=== PATIENT | male | born 1975 | race Two or more races ===

== ENCOUNTER 2024-09-08 15:18 | Outpatient (REF) | payer BC, SELFPAY ==
[2024-09-08 17:08] LABS: Erythrocyte Sedimentation Rate 13 MM/HR (0-15)
== END 2024-09-08 15:19 | disposition home or self-care (01) ==
LOC: HO.LAB 15:18
PROVIDERS: PCP Internal Medicine; Visit Provider Registered Nurse
DX: G44.209 Tension-type headache, unspecified, not intractable (principal)
CPT/HCPCS: 36415; 85652; 86140

== ENCOUNTER 2024-12-28 14:25 | Outpatient (AMB) | payer BC, SELFPAY ==
--- OUTSIDE RECORDS SUMMARY | 2024-12-28 15:00 | XMS_ITS | Encounter Summary ---
Author Organization [employer] Address [address] [place] [address] Care Team Providers Care Annealing Torch Operator Name Role Phone Sunil Renae MD Primary Care Provider [phone] Reason for Visit * Reason Onset Date Comments Results 12/15/2024 Encounter Details Date Type Department Care Team ([facility] st Contact Info) Description 12/15/2024 Telephone Adult Medicine [address] [phone] Giselle Valadez MA Results Social History Tobacco Use Types Packs/Day Years Used Date Smoking Tobacco: Former Cigarettes Q uit: 12/21/2023 Smokeless Tobacco: Never Alcohol Use Standard Drinks/Week Comments Yes 0 (1 standard drink = 0.6 oz pur e alcohol) Sex and Gender Information Value Date Recorded Sex Assigned at Male 08/24/2024 7:19 PM EST Legal Sex Male 7:05 AM EST Gender Identity Male 05/14/2024 8:08 AM EST Sexual Orientation Straight 08/24/2024 7: 19 PM EST documented as of this encounter Functional Status * Are you deaf or do you have serious difficulty hearing? Answer Date of Assessment Author No 09/13/2024 3:22 PM EDT Gomez Murcia RN * Do you have serious difficulty walking or climbing stairs? Answer Date of Assessment Author No 09/13/2024 3:22 PM EDT Gomez Murcia RN * Do you have serious difficulty dressing or bathing? Answer Date of Assessment Author No 09/13/2024 3:22 PM EDT Gomez Murcia RN * Because of a physical, mental, or emotional condition, do you have serious difficulty doing errandsalone such as visiting the doctor? Answer Date of Assessment Author No 09/13/2024 3:22 PM EDT Gomez Murcia RN documented as of this encounter Mental Status * Because of a physical, mental, or emotional condition, do you have serious difficulty concentrating, remembering, or making decisions? (5 years old or older) Answer Entry Date Author No 09/13/2024 3:22 PM EDT Gomez Murcia RN documented in this encounter Ordered Prescriptions Prescription Sig Dispense Quantity Refills Last Filled Start Date End Date atorvastatin (LIPITOR) 10 mg tablet Take 1 tablet (10 mg total) by mouth 1 (one) time each day. 90 each 1 12/19/2024 12/19/2025 documented in this encounter Progress Notes * Larissa Salmeron MA - 12/20/2024 12:25 PM EDT Contacted patient to inform of results. Pt stated he is going to the pharmacy and picking up his medication. * Sunil Renae MD - 12/19/2024 6:05 PM EDT Pt will need a canadian nurse to call him, so he had lipids drawn 12/13/2024 Ldl very high at 174 last ldl 07/2023 144 Please let him now his risk for stroke and or heart attack is estimated to be 10.4% in the next 10 year cholesterol medication is recommend for risk > 7.5% that being said please inform the patient that a cholesterol medication, atorvastatin 10mg, has been sent to his pharmacy * Anneliese Kennedy MA - 12/19/2024 3:55 PM EDT Pt calling for the 2nd time asking for his lab results from 12/13/24 Paulina is out of the office. Can you please advise. * Cristine Fernandez - 12/19/2024 3:34 PM EDT Patient calling back and looking to speak with someone regarding lab results. * Mili Martínez - 12/16/2024 9:09 AM EDT Patient is calling in. Used interpreting service ([phone] [id number]). Patient would like a call back todiscuss his results. Please advise. * Giselle Valadez MA - 12/15/2024 10:36 AM EDT Inform patient: ANY URGENT OR ABNORMAL RESULTS WIILL RESULT IN A CALL BACK TO THE PATIENT GABRIELA. Type of test: :BLOODWORK Date test was performed: 12/13/24 Where was the test performed: [facility] Who ordered this test?: ELISHA LYMAN PA-C Is the doctor here today?: yes Can the message wait until the doctor returns?: no IF PATIENT'S PCP IS NOT IN INSTRUCT PATIENT THAT THEY WILL RECEIVE A CALL BACK WHEN THE PCP IS IN THE OFFICE NEXT. documented in this encounter Plan of Treatment Upcoming Encounters Date Type Department Care Team (Late st Contact Info) Description 12/28/2024 4:00 PM EDT Office Visit Adult Medicine [facility] [address] [place] [address] Kenzie Chou NP [address] [place] [address] Primary hypertension (Primary Dx); Hypercholesteremia; Urinary urgency 01/05/2025 9:10 AM EDT Office Visit Gastroenterology - [place] [address] [place] [id number] Emma Karimi PA [address] [address] 01/17/2025 8:15 AM EDT Appointment [facility] [address] [place] [phone] 04/03/2025 5:00 PM EDT Office Visit Adult Medicine [facility] [address] [place] [phone] Kenzie Chou NP [address] [place] [address] documented as of this encounter Visit Diagnoses Not on filedocumented in this encounter Care Teams Annealing Torch Operator Relationship Specialty Start Date End Date Sunil Renae MD [address] [place] [id number] PCP - General Internal Medicine 04/08/13 documented as of this encounter
--- OUTSIDE RECORDS SUMMARY | 2024-12-28 15:00 | XMS_ITS | Clinical Summary ---
Author Organization [facility] Address [address] [place] [address] Care Team Providers Care Finish Repair Worker Name Role Phone Unavailable Primary Care Provider Unavailabl e Source Comments PLEASE NOTE, if this patient is a minor, it may be UNLAWFUL to discuss sensitive information that is contained in these records (such as FAMILY PLANNING, MENTAL HEALTH or SUBSTANCE ABUSE) with the minor patient's parent or other person without the patient's specific authorization.[facility] Immunizations Immunization Administration Dates Next Due PFIZER COVID VACCINE, PURPLE CAP, 12+ 06/19/2021 Social History Tobacco Use Types Packs/Day Years Used Date Smoking Tobacco: Never Assessed Sex and Gender Information Value Date Recorded Sex Assigned at Not on file Legal Sex Male 10:48 AM PST Gender Identity Not on file Sexual Orientation Not on file Plan of Treatment Health Maintenance Due Date Last Done Comments Anxiety Screening 1977 Diabetes Screening 1977 Hepatitis C Screening 1977 Lipid Screening 1977 Tobacco Screening 1977 HIV Screening 1992 Hypertension Screening (#1) 1995 Imm-Hepatitis B (1 of 3 - 19+ 3-dose series) 6 CT Colonography 2022 Colonoscopy 2022 Colorectal Cancer Screening 2022 FIT/gFOBT 2022 Fecal DNA 2022 Flexible Sigmoidoscopy 2022 [id number] ( season) 2024 021 Alcohol and Drug Screen 06/22/2024 Depression Annual Screen 06/22/2024 Imm-DTaP/Tdap/Td (2 - Td or Tdap) 08/21/2024 015 Imm-Influenza (#1) 2025 Insurance [facility] DENTAL COVID19 [facility] UNINSURED TESTING AND TREATMENT FUND
--- NOTE | 2024-12-28 15:24 | MHC.OFFVIS ---
Intake Visit Reasons: 6 weeks Shrinking Machine Operator Required: Yes Shrinking Machine Operator Name: Sammie #[id number] Allergies No Known Allergies Allergy (Verified 12/28/24 15:35) Medication List - Last Reconciled 12/28/24 by Lanny Shannon CNP atorvastatin 10 mg PO DAILY jhprotyial-hxbviosapbcbk-mjvf 50-325-40 mg tabs PO cetirizine 10 mg PO DAILY 30 days famotidine 20 mg PO BID nifedipine ER 30 mg PO DAILY trazodone 50 mg PO BEDTIME 30 days venlafaxine 75 mg PO DAILY HPI Comments Details: 49-year-old Mohawk speaking man with 15-year history of hypertension controlled with medications and headaches that have been ongoing for several years. He gets 2 or 3 days of pain in the scalp, sometimes sharp, stabbing pains in the occipital area, on either side, and sometimes frontal. The pains in the back of the head usually last a couple of minutes. Sometimes a frontal headache lasts an hour. No pattern has been specified and no triggers known. There are no associated symptoms of nausea, vomiting, photophobia, sonophobia, or dizziness. He has trouble sleeping at night. He was doing okay. Headaches were better with increased dose of venlafaxine and cetirizine. He was concerned with difficulty sleeping. He was having trouble initiating and maintaining sleep. He was waking up about 4-5x/night and it could take him sometimes up to 1-2 hours to fall back to sleep. [facility] Medical History (Updated 12/28/24 @ 15:41 by Lanny Shannon CNP) Sinusitis Migraine Hypertension Insomnia Tension headache Social History (Updated 12/28/24 @ 13:50 by Selena Gleason MA) Patient Tobacco Use Status: Never used Tobacco Review of Systems Const Denies chills, Denies daytime sleepiness, Reports difficulty sleeping, Denies fatigue, Denies fever(s), Denies frequent falls, Reports headache(s), Denies increased appetite, Denies poor appetite, Denies snoring, Denies weakness, Denies weight gain and Denies weight loss Eyes Denies loss of vision ENT Denies vertigo, Denies dizziness, Reports headache(s) and Denies neck pain Card Denies chest pain at rest, Denies chest pain with activity, Denies syncope, Denies leg edema, Denies palpitations, Denies dyspnea and Denies dyspnea on exertion Resp Denies cough, Denies dyspnea, Denies dyspnea on exertion and Denies snoring GI Denies abdominal pain, Denies constipation, Denies heartburn, Denies diarrhea and Denies nausea Denies urinary frequency, Denies urinary incontinence and Denies urinary urgency Musc Denies abnormal gait, Denies back pain, Denies myalgias, Denies arthralgias, Denies neck pain, Denies numbness, Denies stiffness and Denies tingling Neuro Denies abnormal gait, Denies vertigo, Denies dizziness, Denies syncope, Denies frequent falls, Reports headache(s), Denies lack of coordination, Denies loss of vision, Denies memory loss, Denies numbness, Denies Other visual disturbances, Denies restless legs, Denies seizure-like activity, Denies tingling, Denies paresthesias, Denies tremor(s) and Denies weakness Psych Denies anxiety, Denies depression, Denies memory loss, Denies visual hallucinations and Denies hallucinations Endo Denies fatigue and Denies palpitations Physical Exam Const Other: General Appearance:? normal, in no acute distress. Heart:? S1, S2 normal, no murmurs. Lungs:? clear anteriorly and posteriorly. Musculoskeletal:? normal. Extremities:? no edema. Psych:? alert, oriented, cognitive function intact, cooperative with exam. Neuro Other: Abnormal Neurological Findings:?none.? Mental Status: alert and oriented X 3. Normal attention, orientation, memory, and affect. Cranial Nerves: Pupils are equal, round, and reactive to light. External ocular muscles are intact. Visual vital are full, no ptosis. Face is symmetrical, no facial weakness or droop. Facial sensations are normal. Tongue protrudes in midline. Palate elevates symmetrically. Shoulder shrugging is normal Motor Examination: Normal muscle tone, bulk and strength. No atrophy or fasciculations. No drift of the extended upper extremities. DTR 2+. Plantars are flexor. Straight Leg Raisin degrees. Sensory Exam: Normal light touch, temperature, pinprick, vibration, and joint-position sensations. Rhomberg sign is absent. Coordination: No ataxia. No titubation. Fhqxfc-di-qgcv, bcen-avfd-gnxq test, and rapid alternating movements were normal. Gait Exam: Within normal limits. Cerebellar Signs: Jkvvti-ku-arsj and beft-pi-ybyh is normal. No dysdiadochokinesia. Extrapyramidal System: No tremor, rigidity with normal facial expressions. No bradykinesia. No bradyphrenia. Normal arm swing and posture. No propulsion or retropulsion. Speech: Normal. No dysphasia or dysarthria. Assessment & Plan Assessment & Plan (1) Tension headache: Code(s): G44.209 - Tension-type headache, unspecified, not intractable Category: Medical Plan: Continue venlafaxine 75mg 1 tablet daily (2) Insomnia: Code(s): G47.00 - Insomnia, unspecified Category: Medical Qualifiers: Insomnia type: unspecified Qualified Code(s): G47.00 - Insomnia, unspecified Plan: Start trazodone 50mg 1 tablet at bedtime, use/side effects reviewed. (3) Sinusitis: Code(s): J32.9 - Chronic sinusitis, unspecified Category: Medical Qualifiers: Chronicity: unspecified Sinusitis location: unspecified location Qualified Code(s): J32.9 - Chronic sinusitis, unspecified Plan: Continue cetirizine 10mg 1 tablet daily. Plan Meds tried: amitriptyline (did not help and caused dry mouth), nortriptyline (did not help), topiramate (did not help), prednisone (did not finish taper), verapamil (did not like how he felt with med), cyclobenzaprine, venlafaxine Medications: New trazodone 50 mg PO BEDTIME 30 tabs 1RF 30 days cetirizine 10 mg PO DAILY 30 tabs 5RF 30 days Coding Level of Care Code Est Pt Level 4 (45618) Diagnoses Tension headache G44.209 Insomnia, unspecified type G47.00 Insomnia type: unspecified Sinusitis, unspecified chronicity, unspecified location J32.9 Chronicity: unspecified Sinusitis location: unspecified location
== END 2024-12-28 15:47 | disposition home or self-care (01) ==
LOC: HO.HSM 14:25
PROVIDERS: PCP Internal Medicine; Referring Provider Internal Medicine; Visit Provider Registered Nurse
DX: G44.209 Tension-type headache, unspecified, not intractable (principal); G47.00 Insomnia, unspecified; J32.9 Chronic sinusitis, unspecified
CPT/HCPCS: 99214

== ENCOUNTER 2025-03-29 10:21 | Outpatient (AMB) | payer OTHER, SELFPAY ==
--- NOTE | 2025-03-29 10:35 | A.OFFVIS_ITS ---
Vital Signs 03/29/25 10:47 Height 5 ft 11 in Weight 295 lb BMI 41.1 BP 128/90 H Blood Pressure Location Rt brachial Position Sitting Respiration 16 Pulse 88 Pulse Source Pulse Oximeter Pulse Oximetry (%) 99 Oxygen Delivery Method Room Air Intake Visit Reasons: Migraine Telecom Billing Analyst Required: Yes Telecom Billing Analyst Services: Telecom Billing Analyst Present Telecom Billing Analyst Name: Duncan ID [id number] Information Interpreted: non-clinical & clinical Allergies venlafaxine Allergy (Severe, Verified 03/29/25 10:46) Low Blood Pressure aspirin Allergy (Unknown, Verified 03/29/25 10:46) Tachycardia Medication List - Last Reconciled 03/29/25 by Magui Rosales, YENY atorvastatin 10 mg PO DAILY cetirizine 10 mg PO DAILY 30 days nifedipine ER 30 mg PO DAILY omeprazole 40 mg PO DAILY trazodone 50 mg PO BEDTIME 90 days HPI Comments Details: Denton is a 49-year-old male patient with a past medical history of hypertension, constipation, headache, and insomnia. He was last seen by Lanny NERI in December of 2024 at which time he reported 2 or 3 days of sharp pain to his scalp in the occipital area and sometimes frontal area. Pain could last a couple of minutes and he denied any associated nausea, vomiting, photophobia, phonophobia, or dizziness. He did report difficulty sleeping at night. Headaches in the past have improved with increased dose of venlafaxine and cetirizine. He unfortunately had some dizziness and hypotension with increased dose of venlafaxine and stopped taking it. At last visit, he still continued to have difficulty initiating and maintaining sleep. He was started on trazodone 50 mg at bedtime and continued on cetirizine. He tells me today that since starting on the trazodone he feels that he has been sleeping better but still only estimates that he gets about 3-4 hours per night with frequent awakenings. He does wake himself snoring at times and awakes from sleep lightheaded. He believes that he had a sleep study completed about 2 years ago at [facility] [place]. He recalls that it was normal. He continues to have some dull pain to the frontal areas of his head that is intermittent and associated with some difficulty with concentration. He has the pain daily but it fluctuates throughout the day and can radiate to his neck. He denies light sensitivity, sensitivity to noise but at times can have some nausea and dizziness. At times he may also have a sensation of full body weakness and at times can experience blurred vision to both eyes. It is also noted in the in the past he has tried: Amitriptyline-no benefit and dry mouth Nortriptyline no benefit Topiramate-no benefit Verapamil-did not like the way it made him feel Cyclobenzaprine-no significant benefit Venlafaxine-has had some benefit with this [facility] Medical History (Updated 03/29/25 @ 11:17 by Magui Rosales CNP) Sinusitis Migraine Hypertension Insomnia Tension headache Social History (Updated 12/28/24 @ 13:50 by Selena Gleason MA) Patient Tobacco Use Status: Never used Tobacco Review of Systems Const All systems reviewed & are unremarkable except as noted in HPI and below Physical Exam Vital Signs: Last Vital Signs Pulse 88 03/29/25 10:47 Resp 16 03/29/25 10:47 BP 128/90 H 03/29/25 10:47 Pulse Ox 99 03/29/25 10:47 Oxygen Delivery Method Room Air 03/29/25 10:47 BMI result Body Mass Index 41.1 Const General: cooperative, healthy appearing, comfortable and no acute distress Nutritional Appearance: well nourished Orientation/consciousness: patient oriented x3 Limitations: no limitations HEENT Head: Yes normal to inspection and Yes normocephalic Eyes General: appearance normal, both eyes and all related structures Visual Collins: normal visual collins by confrontation Alignment and Position: alignment normal Periorbital: periorbital findings normal Eyelids: Yes eyelids normal Conjunctivae: conjunctivae normal Sclerae: sclerae normal Back/Spine/Pelvis Other: * Bilateral upper trapezius tightness and some mild SELENA tenderness. Neuro General: patient oriented x3 and deep tendon reflexes 2+ bilaterally Cranial nerves: Yes CN's II-XII intact bilaterally and Yes Facial sensation intact/muscles of mastication intact Cognition (Neuro): normal cognition Gait exam (Neuro): Normal gait present Motor exam (neuro): 5/5 motor strength present throughout and no tremor noted Sensory Exam: double simultaneous stimulation for sensation normal Romberg Test: Negative Pupils: Normal pupillary reactivity/response: bilateral Psych Appearance: grossly normal Mental Status: mental status grossly normal Speech and movement: Normal speech and movement present and Clear speech present Affect: normal affect Attitude: cooperative Thought process: Normal thought process present Thought content: Normal thought content present Insight: Good insight present (Psych) Judgement: Good judgement present (Psych) Assessment & Plan Assessment & Plan (1) Chronic daily headache: Code(s): R51.9 - Headache, unspecified Category: Medical (2) Chronic migraine without aura without status migrainosus, not intractable: Code(s): G43.709 - Chronic migraine without aura, not intractable, without status migrainosus Category: Medical (3) Chronic tension headache: Code(s): G44.229 - Chronic tension-type headache, not intractable Category: Medical Plan Denton is a 49-year-old male patient with a past medical history of hypertension, constipation, headache, and insomnia. He has chronic headache and insomnia. His insomnia slightly better on trazodone 50 mg nightly though still his sleep quality is relatively poor. He does report having a normal sleep study in the past though we could consider repeating his sleep study if his sleep quality does not improve. In regards to his headaches, he is having daily headaches to the frontal areas with some occipital pain and trapezius tightness. Overall, his headaches are consistent with tension-type however because he does have accompanying nausea, dizziness, and blurred vision, headaches do technically fit criteria for chronic migraine. He has exhausted numerous options for tension-type headache and therefore I think it would be reasonable to trial him on Emgality. We also discussed potentially considering occipital nerve blocks or trigger point injections moving forward if the Emgality does not improve his headaches. Emgality teaching performed during visit with irrigationist designer and reyo pen. -Could consider repeat sleep study -Contnue Trazodone for now -Emgality 240mgsc loading dose and 120mg sc maintenance dose -Consider ONB and trigger points for alternative tx options -Follow-up in 2 months Medications: New galcanezumab-gnlm (Emgality Pen) Loading dose 240 mg (2 mL) subcut ONCE 2 mL 0RF galcanezumab-gnlm (Emgality Pen) 120 mg subcut QMONTH 1 mL 4RF Changed From trazodone 50 mg PO BEDTIME 30 days 30 tabs 1RF To trazodone 50 mg PO BEDTIME 90 tabs 3RF 90 days Coding Level of Care Code Est Pt Level 4 (03310) Diagnoses Chronic daily headache R51.9 Chronic migraine without aura without status migrainosus, not intractable G43.709 Chronic tension headache G44.229
[2025-03-29 10:47] VITALS: BP 128/90; PULSE 88; RESP 16; O2SAT 99; BMI 41.1
== END 2025-03-29 11:10 | disposition home or self-care (01) ==
LOC: HO.HSM 10:22
PROVIDERS: PCP Internal Medicine; Visit Provider Nurse Practitioner
DX: R51.9 Headache, unspecified (principal); G43.709 Chronic migraine without aura, not intractable, without status migrainosus; G44.229 Chronic tension-type headache, not intractable
CPT/HCPCS: 99214

== ENCOUNTER → 2025-03-29 10:21 | Outpatient (BNVA) | payer OTHER, SELFPAY | PROVIDERS: PCP Internal Medicine; Visit Provider Nurse Practitioner | DX: G43.709 Chronic migraine without aura, not intractable, without status migrainosus (principal); G44.229 Chronic tension-type headache, not intractable | CPT/HCPCS: 99212 ==

== ENCOUNTER 2025-06-02 15:24 | Outpatient (AMB) | payer OTHER, SELFPAY ==
[2025-06-02 15:35] VITALS: BP 132/82; PULSE 81; RESP 16; O2SAT 99; BMI 41.6
--- NOTE | 2025-06-02 15:35 | MHC.OFFVIS ---
Vital Signs 06/02/25 15:35 Height 5 ft 11 in Weight 298 lb BMI 41.6 BP 132/82 Blood Pressure Location Rt brachial Position Sitting Respiration 16 Pulse 81 Pulse Oximetry (%) 99 Oxygen Delivery Method Room Air Intake Visit Reasons: 2m migraine Final Inspector Paper Required: Yes Final Inspector Paper Services: Final Inspector Paper Present Information Interpreted: non-clinical & clinical Allergies venlafaxine Allergy (Severe, Verified 06/02/25 15:37) Low Blood Pressure aspirin Allergy (Unknown, Verified 06/02/25 15:37) Tachycardia HPI Comments Details: Denton is a 50-year-old male patient with a past medical history of hypertension, constipation, headache, and insomnia. He has a history of chronic migraine that has improved somewhat since starting on trazodone given the improvement in his sleep quality though estimates that he still is experiencing daily headaches fluctuating in intensity throughout the day often to the frontal areas accompanied by nausea and dizziness. He also at times has a sensation of whole-body weakness and can experienced blurred vision in both eyes. Pain is often described as a dull aching pain. He has tried several agents for his migraines without benefit. At time of his last visit, I did order Emgality however this was denied by insurance for unclear reasons but perhaps due to lack of supportive documentation regarding his past medication trials. Today he tells me that his headaches have not changed since the time of our last visit but he does feel that the trazodone helps still to some degree with minimizing his migraine severity in improving his sleep quality. It is also noted in the in the past he has tried: Amitriptyline-no benefit and dry mouth Nortriptyline no benefit Topiramate-no benefit Verapamil-did not like the way it made him feel Cyclobenzaprine-no significant benefit Venlafaxine-has had some benefit with this (do not reccomend antihypertensives for migraine prevention as he is currently on nifedipine) [facility] Medical History (Updated 03/29/25 @ 11:17 by Magui Rosales CNP) Sinusitis Migraine Hypertension Insomnia Tension headache Social History (Updated 12/28/24 @ 13:50 by Selena Gleason MA) Patient Tobacco Use Status: Never used Tobacco Review of Systems Const All systems reviewed & are unremarkable except as noted in HPI and below Physical Exam Vital Signs: Last Vital Signs Pulse 81 06/02/25 15:35 Resp 16 06/02/25 15:35 BP 132/82 06/02/25 15:35 Pulse Ox 99 06/02/25 15:35 Oxygen Delivery Method Room Air 06/02/25 15:35 BMI result Body Mass Index 41.6 Const General: cooperative, healthy appearing, comfortable and no acute distress Nutritional Appearance: well nourished Orientation/consciousness: patient oriented x3 Limitations: no limitations HEENT Head: Yes normal to inspection and Yes normocephalic Eyes General: appearance normal, both eyes and all related structures Visual Vital: normal visual vital by confrontation Alignment and Position: alignment normal Periorbital: periorbital findings normal Eyelids: Yes eyelids normal Conjunctivae: conjunctivae normal Sclerae: sclerae normal Back/Spine/Pelvis Other: Bilateral upper trapezius tightness and some mild SELENA tenderness. Neuro General: patient oriented x3 and deep tendon reflexes 2+ bilaterally Cranial nerves: Yes CN's II-XII intact bilaterally and Yes Facial sensation intact/muscles of mastication intact Cognition (Neuro): normal cognition Gait exam (Neuro): Normal gait present Motor exam (neuro): 5/5 motor strength present throughout and no tremor noted Sensory Exam: double simultaneous stimulation for sensation normal Romberg Test: Negative Pupils: Normal pupillary reactivity/response: bilateral Psych Appearance: grossly normal Mental Status: mental status grossly normal Speech and movement: Normal speech and movement present and Clear speech present Affect: normal affect Attitude: cooperative Thought process: Normal thought process present Thought content: Normal thought content present Insight: Good insight present (Psych) Judgement: Good judgement present (Psych) Assessment & Plan Assessment & Plan (1) Chronic migraine without aura without status migrainosus, not intractable: Code(s): G43.709 - Chronic migraine without aura, not intractable, without status migrainosus Category: Medical Plan Denton is a 50-year-old male patient with a past medical history of hypertension, constipation, headache, and insomnia. He has a history of chronic migraine and has tried several agents for migraine control without much success. He is still having daily migraines fluctuating in intensity accompanied by nausea and dizziness. At time of last visit he was prescribed Emgality though this was denied by insurance for unclear reasons but perhaps due to lack of supporting documentation regarding past medication trials or reasons he can not take other first-line agents. I did clarify this as listed above in the HPI. Because he has had such a gap in time since our last visit without any new therapy, I did provide him with an Ajovy sample during today's visit due to availability of this medication. It is a suitable alternative to Emgality. I will discontinue the request for Emgality and pursue an approval for Ajovy prevented that we are able to give him a sample and start his therapy at time of visit today. -Ajovy 225 mg sample injection given today during his visit (lot number [id number], exp date ) -I we will order the Ajovy 225 mg monthly injections which will hopefully be approved to 2 clarification of the past medication trials and contraindications to certain first-line agents -Follow-up in 1 month Medications: New fremanezumab-vfrm (Ajovy) 225 mg (1.5 mL) subcut QMONTH 1.5 mL 5RF Discontinued galcanezumab-gnlm (Emgality Pen) Loading dose Discontinued Reason: Doctor's Order 240 mg (2 mL) subcut ONCE 2 mL 0RF galcanezumab-gnlm (Emgality Pen) Discontinued Reason: Doctor's Order 120 mg subcut QMONTH 1 mL 4RF Coding Level of Care Code Est Pt Level 4 (84095) Diagnoses Chronic migraine without aura without status migrainosus, not intractable G43.709
--- OUTSIDE RECORDS SUMMARY | 2025-06-02 20:16 | XMS_ITS ---
Author Name [facility] ([place], [place]) Organization Unknown Care Team Organization Name Specialty Phone Email Start Date End Da te [facility] 08/27/2022 02/08/2024 [facility] DIPAK [facility]BETT Primary [facility] 04/29/2022
--- OUTSIDE RECORDS SUMMARY | 2025-06-02 20:16 | XMS_ITS | Clinical Summary ---
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 4 Active linaCLOtide (Linzess) 290 mcg capsule Take 1 capsule (290 mcg total) by mouth 1 (one) time each day. 30 capsule 11 4 Active lactulose (CHRONULAC) solution Take 30 mL (20 g total) by mouth 2 (two) times a day. 900 mL 2 5 Active Additional Information Patient not taking.Reported on 05/11/2025 linaCLOtide (Linzess) 290 mcg capsule Take 1 capsule (290 mcg total) by mouth 1 (one) time each day. 90 capsule 3 5 Active methocarbamoL (ROBAXIN) 500 mg tablet Take 2 tablets (1,000 mg total) by mouth 2 (two) times a day if needed for muscle spasms for up to 10 days. 20 tablet 5 Active Additional Information Patient not taking.Reported on 05/11/2025 SUMAtriptan (IMITREX) 50 mg tablet Take 1 tablet (50 mg total) by mouth 1 (one) time if needed for migraine. May repeat dose once in 2 hours if no relief. Do not exceed 2 doses in 24 hours. 27 tablet 5 04/12/20 26 Active hydrOXYzine HCL (ATARAX) 10 mg tablet Take 1 tablet (10 mg total) by mouth every 8 (eight) hours if needed for anxiety. 60 tablet 5 Active NIFEdipine (ADALAT CC) 30 mg 24 hr tablet Take 1 tablet (30 mg total) by mouth 1 (one) time each day in the evening. 90 tablet 1 5 Active sertraline (ZOLOFT) 50 mg tablet Take 1 tablet (50 mg total) by mouth 1 (one) time each day. 30 each 2 5 08/07/19 26 Active traZODone (DESYREL) 50 mg tablet Take 1 tablet (50 mg total) by mouth at bedtime as needed for sleep. 60 each 5 07/08/19 26 Active omeprazole (PriLOSEC) [address] capsule Take 1 capsule (40 mg total) by mouth 2 (two) times a day before meals. Do not crush or chew. 180 each 3 5 05/11/20 26 Active ondansetron (ZOFRAN) 4 mg tablet Take 1 tablet (4 mg total) by mouth 3 (three) times a day. 20 tablet 5 06/10/20 25 Active atorvastatin (LIPITOR) 10 mg tablet Take 1 tablet (10 mg total) by mouth 1 (one) time each day. 90 each 1 5 05/29/20 26 Active atorvastatin (LIPITOR) 10 mg tablet Take 1 tablet (10 mg total) by mouth 1 (one) time each day. 90 each 1 5 05/25/20 25 Discontin ued(Reord er) omeprazole (PriLOSEC) [address] capsule Take 1 capsule (40 mg total) by mouth 2 (two) times a day before meals. Do not crush or chew. 60 each 3 5 05/11/20 25 Discontin ued(Reord er) sertraline (ZOLOFT) 50 mg tablet Take 1 tablet (50 mg total) by mouth 1 (one) time each day. Take 1/2 pill for the first 10 days, increase to 1 pill thereafter. 30 each 1 5 05/09/20 25 Discontin ued(Reord er) traZODone (DESYREL) 50 mg tablet Take 0.5 tablets (25 mg total) by mouth at bedtime as needed for sleep. 15 each 05/09/20 25 Discontin ued(Reord er) Active Problems Problem Noted Date Diagnosed Date Migraine with aura and witho ut status migrainosus, not intractable 06/09/2024 Morbid obesity with BMI of 40.0-44.9, adult 04/22 Prediabetes 05/11/2021 Subclinical hyperthyroidism 03/06/2021 Chronic low back pain 12/28/2020 Snoring 04/04/2020 Overview (05/06/2024): 03/2020 Home Sleep Study did not reveal sleep apnea or nocturnal hypoxia. 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 Hypercholesteremia 04/11/2013 Encounters Date Type Department Care Team Description 05/23/2025 Telephone Gastroenterology - [address] [phone] Madisyn Mike MA 05/20/2025 10:06 AM EST - 05/20/2025 11:59 PM EST Hospital Encounter [facility] Ultrasound [address] [place] [phone] RUQ abdominal pain Discharge Disposition: Home or Self Care 05/11/2025 2:00 PM EST Office Visit Gastroenterology - [address] [phone] Emma Karimi PA RUQ abdominal pain (Primary Dx); Constipation, unspecified constipation type; Gastroesophageal reflux disease without esophagitis 05/10/2025 Results Follow-Up [address] [phone] Paulina Huynh PA 05/09/2025 9:00 AM EST Office Visit [address] [phone] Robbie Winston NP Generalized anxiety disorder with panic attacks (Primary Dx); Insomnia due to other mental disorder 04/28/2025 8:00 AM EST Ancillary Procedure [facility] - [address] [place] [address] Chest pain, unspecified type 04/24/2025 1:21 AM EST - 04/24/2025 3:18 AM EST Emergency [facility] Emergency [address] [place] [phone] Pain in both upper extremities (Primary Dx) Discharge Disposition: Home or Self Care 04/20/2025 9:15 AM EDT Lab Draw [address] Numbness and tingling of both lower extremities; Numbness and tingling of both upper extremities; Sensation of both heat and cold 04/20/2025 8:30 AM EDT Office Visit [address] [phone] Paulina Huynh PA Numbness and tingling of both lower extremities (Primary Dx); Numbness and tingling of both upper extremities; Sensation of both heat and cold; Generalized anxiety disorder with panic attacks; Insomnia due to other mental disorder 04/18/2025 3:00 PM EDT Office Visit [address] [phone] Robbie Winston NP Generalized anxiety disorder with panic attacks (Primary Dx); Insomnia due to other mental disorder 04/13/2025 Results Follow-Up [address] [phone] Paulina Huynh PA 04/12/2025 11:30 AM EDT Office Visit Adult [address] [phone] Paulina Huynh PA Anxiety (Primary Dx); Hypercholesteremia; Prediabetes; Nonintractable headache, unspecified chronicity pattern, unspecified headache type; Dizziness; Sensation of cold in leg; Primary hypertension 04/12/2025 Telephone Adult Medicine [address] [phone] Sunil Renae MD 04/12/2025 Results Follow-Up [address] [phone] Chioma Reyna PA 04/10/2025 10:51 AM EDT - 04/10/2025 2:31 PM EDT Emergency [facility] Emergency [address] [place] [phone] Ethan Wetzel MD Bilateral leg pain (Primary Dx) Discharge Disposition: Home or Self Care 04/09/2025 2:03 PM EDT - 04/09/2025 2:29 PM EDT Emergency [facility] Emergency [address] [place] [phone] Sari Boyd MD Anxiety (Primary Dx) Discharge Disposition: Home or Self Care 04/08/2025 8:45 AM EDT - 04/08/2025 11:59 PM EDT Hospital Encounter [facility] MRI [address] [place] [phone] Nonintractable headache, unspecified chronicity pattern, unspecified headache type; Dizziness; Empty sella (CMS/HCC V24) Discharge Disposition: Home or Self Care 04/03/2025 Telephone Adult Medicine [address] [phone] Sunil Renae MD 04/01/2025 10:27 AM EDT - 04/01/2025 1:50 PM EDT Emergency [facility] Emergency [address] [place] [phone] Other chest pain (Primary Dx); Anxiety about dying Discharge Disposition: Home or Self Care 03/30/2025 8:26 AM EDT - 03/30/2025 11:59 PM EDT Hospital Encounter CT Scan [address] [phone] Nonintractable headache, unspecified chronicity pattern, unspecified headache type; Dizziness Discharge Disposition: Home or Self Care 03/30/2025 Results Follow-Up [address] [phone] Chioma Reyna PA 03/28/2025 Results Follow-Up [address] [phone] Chioma Reyna PA 03/27/2025 12:30 PM EDT Ancillary Procedure [facility] [address] [phone] Intermittent chest pain; Dizziness; Primary hypertension 03/24/2025 10:00 AM EDT Ancillary Procedure [facility] [place] [address] [address] [phone] Intermittent chest pain; Dizziness 2025 10:36 AM EDT - 2025 1:12 PM EDT Emergency [facility] Emergency [address] [place] [phone] Sari Boyd MD Tension headache (Primary Dx); Temporal pain; Lumbar muscle pain Discharge Disposition: Home or Self Care 03/11/2025 3:16 PM EDT - 03/11/2025 7:16 PM EDT [facility] Emergency [address] [place] [phone] Matthew Pepe MD Encounter for medical screening examination (Primary Dx); Acute generalized body pain Discharge Disposition: Home or Self Care from Last 3 Months Immunizations Immunization Administration Dates Next Due Influenza Quadravalent, MDCK , 0.5ml, with preservative (Flucelvax) 6mo and older 04/13/2017 MMR, measles mumps and rubel la Live (Priorix; M-M-R II) 12mo and older 08/30/2014 PPD Test 07/15/2017,08/21/2014 Pfizer SARS-CoV-2 COVID-19, mRNA, LNP-S, preservative free 06/19/2021 Tdap Tetanus diptheria acell ular pertussis (Boostrix; Adacel) 7yo and older 08/21/2014 Varicella live (Varivax) 12mo and older 08/31/19 15 Surgical History Surgery Date Site/Laterality Comments OTHER SURGICAL HISTORY PROCEDURE: DENIES PREVIOUS SURGERY Medical History Medical History Date Comments HTN (hypertension) DX:HTN (hyper tension) High cholesterol DX:High cholest edmar GERD (gastroesophageal reflu x disease) DX:GERD (gastroesophageal re flux disease) GERD (gastroesophageal reflu x disease) 01/23/2016 DX:GERD (gastroesophageal re flux disease) Subclinical hyperthyroidism 03/06/2021 DX:S ubclinical hyperthyroidism Epigastric pain DX:Epigastric pa in Fatty liver DX:Fatty liver Straining with stools DX:Straini ng with stools Rectal bleeding DX:Rectal bleedi ng Constipation DX:Constipation Regurgitation of food DX:Regurgi tation of food Early satiety DX:Early satiety HTN (hypertension) 01/23/2016 Family History Medical History Relation Name Comments Other: healthy Father Heart attack Maternal Grandmother d s/p stroke Hypertension Mother diabetes, [place], [place] Blindness Neg Hx Cataracts Neg Hx Glaucoma Neg Hx Macular degeneration Neg Hx Strabismus Neg Hx Relation Name Status Comments Brother Alive Daughter Alive Father Alive Maternal Grandmother Mother Alive Son 1 Alive Son 2 Alive Social History Tobacco Use Types Packs/Day Years Used Date Smoking Tobacco: Former Cigarettes 0.1 Q uit: 12/21/2023 Smokeless Tobacco: Never Tobacco Cessation:Counseling Given: Not Answered Alcohol Use Standard Drinks/Week Comments Yes 0 (1 standard drink = 0.6 oz pur e alcohol) Sex and Gender Information Value Date Recorded Sex Assigned at Male 08/24/2024 7:19 PM EST Legal Sex Male 7:05 AM EST Gender Identity Male 05/14/2024 8:08 AM EST Sexual Orientation Straight 08/24/2024 7: 19 PM EST Last Filed Vital Signs Vital Sign Reading Time Taken Comments Blood Pressure 126/74 05/11/2025 1:47 PM EST Pulse 89 05/11/2025 1:47 PM EST Temperature 36 C (96.8 F) 04/20/2025 8:10 AM EDT Respiratory Rate 18 04/24/2025 1:13 AM EST Oxygen Saturation 98% 05/11/2025 1:47 PM EST Inhaled Oxygen Concentration - - Weight 127 kg (281 lb) 05/11/2025 1:47 PM EST Height 180.3 cm (5' 11 ) 05/11/2025 1:47 PM EST Body Mass Index 39.19 05/11/2025 1:47 PM EST Plan of Treatment Upcoming Encounters Date Type Department Care Team (Late st Contact Info) Description 07/03/2025 3:30 PM EST Office Visit Adult Medicine [address] [phone] Robbie Winston NP [address] [place] [address] 08/04/2025 3:00 PM EST Office Visit Adult [address] [phone] Sunil Renae MD [address] [place] [address] 08/22/2025 2:20 PM EST Office Visit Gastroenterology - [address] [phone] Emma Karimi PA [address] [place] [phone] Health Maintenance Due Date Last Done Comments Hepatitis B Vaccines (1 of 3 - 19+ 3-dose series) 1996 Social Influencers of Health Screening 05/31/2022 Depression Screening 06/22/2024 DTaP,Tdap,and Td Vaccines (2 - Td or Tdap) 08/21/2024 08/21/2014 COVID-19 Vaccine (2 - 2024- season) 2025 06/19/2021 Influenza Vaccine (#1) 2025 04/13/2017 Hypertension/CHF/CAD Annual BMP Blood Test 04/01/2026 04/01/2025, 03/11/2025, 02/27/2025, Additional history exists Colorectal Cancer Screening: Colonoscopy 12/13/2028 12/14/2023 Cholesterol Screening (Lipid Panel) 04/13/2030 04/13/2025, 12/13/2024, 07/23/2023 RSV Immunization Adult Patients (1 - 1-dose 75+ series) 2052 MMR Vaccines Aged Out 08/30/2014 No longer eligi ble based on patient's age to complete this topic Varicella Vaccines Aged Out 08/30/2014 No longer eligible based on patient's age to complete this topic HIV Screening Completed 06/04/2015 Hepatitis C Screening Completed 06/04/2015 HIB Vaccines Aged Out No longer eligi ble based on patient's age to complete this topic HPV Vaccines Aged Out No longer eligi ble based on patient's age to complete this topic Hepatitis A Vaccines Aged Out No long er eligible based on patient's age to complete this topic IPV Vaccines Aged Out No longer eligi ble based on patient's age to complete this topic Meningococcal ACWY Vaccine Aged Out N o longer eligible based on patient's age to complete this topic Meningococcal B Vaccine Aged Out No l onger eligible based on patient's age to complete this topic Pneumococcal Vaccine: Pediatrics (0 to 5 Years) and At-Risk Patients (6 to 49 Years) Aged Out No longer eligible based on patient's age to complete this topic RSV Immunization Patients Under 20 months Aged Out No longer eligible based on patient's age to complete this topic Procedures Procedure Name Priority Date/Time Associated Diagnosis Comments US ABDOMEN LIMITED Routine 05/20/2025 10 :26 AM EST RUQ abdominal pain NM EXERCISE STRESS TEST W/ MYOCARDIAL PERFUSION Routine 04/28/2025 10:30 AM EST Chest pain, unspecified type TRIIODOTHYRONINE FREE Routine 04/20/2025 9:13 AM EDT Numbness and tingling of both lower extremities Numbness and tingling of both upper extremities Sensation of both heat and cold FREE THYROXINE WITH REFLEX TO FREE TRIIODOTHYRONINE Routine 04/20/2025 9:13 AM EDT Numbness and tingling of both lower extremities Numbness and tingling of both upper extremities Sensation of both heat and cold THYROID STIMULATING HORMONE WITH REFLEX TO FREE T4 AND FREE T3 Routine 04/20/2025 9:13 AM EDT Numbness and tingling of both lower extremities Numbness and tingling of both upper extremities Sensation of both heat and cold VITAMIN B12 Routine 04/20/2025 9:13 AM EDT Numbness and tingling of both lower extremities Numbness and tingling of both upper extremities Sensation of both heat and cold LIPID PANEL WITH REFLEX TO DIRECT LDL Routine 04/13/2025 7:50 AM EDT Hypercholesteremia HEMOGLOBIN A1C Routine 04/13/2025 7:50 AM EDT Prediabetes VAS US DUPLEX LOWER EXT VENOUS BILAT STAT 04/10/2025 12:06 PM EDT Bilateral leg pain MR BRAIN WO CONTRAST Routine 04/08/2025 9:39 AM EDT Nonintractable headache, unspecified chronicity pattern, unspecified headache type Dizziness Empty sella (CMS/HCC V24) ECG ANNOTATED 04/03/2025 TROPONIN I HIGH SENSITIVITY STAT 04/01/2025 12:11 PM EDT XR CHEST 2 VIEWS STAT 04/01/2025 11:1 8 AM EDT CBC WITH AUTO DIFFERENTIAL STAT 04/01/2025 10:56 AM EDT PROTHROMBIN TIME WITH INR STAT 04/01/2025 10:56 AM EDT D-DIMER STAT 04/01/2025 10:56 AM EDT TROPONIN I HIGH SENSITIVITY STAT 04/01/2025 10:56 AM EDT CBC AND DIFFERENTIAL STAT 04/01/2025 10:56 AM EDT BASIC METABOLIC PANEL STAT 04/01/2025 10:[address] HEAD WO CONTRAST Routine 03/30/2025 8 :49 AM EDT Nonintractable headache, unspecified chronicity pattern, unspecified headache type Dizziness STRESS TEST ONLY EXERCISE Routine 03/27/2025 12:42 PM EDT Intermittent chest pain Dizziness Primary hypertension CARDIAC HOLTER MONITOR (REPORT GENERATED IN HOUSE) Routine 03/24/2025 9:05 AM EDT Intermittent chest pain Dizziness ECG ANNOTATED 03/13/2025 MOLINA URINE CULTURE TUBE STAT 03/11/20 6:38 PM EDT URINALYSIS WITH REFLEX MICROSCOPIC AND CULTURE STAT 03/11/2025 6:38 PM EDT URINALYSIS WITH REFLEX MICROSCOPIC AND CULTURE STAT 03/11/2025 6:38 PM EDT TROPONIN I HIGH SENSITIVITY Timed 03/11/2025 5:48 PM EDT CULTURE BLOOD STAT 03/11/2025 5:48 PM EDT XR CHEST 2 VIEWS STAT 03/11/2025 5:25 PM EDT B-TYPE NATRIURETIC PEPTIDE STAT 03/11/2025 3:11 PM EDT PROTHROMBIN TIME WITH INR STAT 03/11/2025 3:11 PM EDT LACTATE, WITH REFLEX STAT 03/11/2025 3:11 PM EDT CBC WITH AUTO DIFFERENTIAL STAT 03/11/2025 3:11 PM EDT MAGNESIUM STAT 03/11/2025 3:11 PM EDT LIPASE STAT 03/11/2025 3:11 PM EDT COMPREHENSIVE METABOLIC PANEL STAT 03/11/2025 3:11 PM EDT CBC AND DIFFERENTIAL STAT 03/11/2025 3:11 PM EDT TROPONIN I HIGH SENSITIVITY Timed 03/11/2025 3:11 PM EDT CULTURE BLOOD STAT 03/11/2025 3:11 PM EDT ECG 12-LEAD STAT 03/11/2025 2:12 PM EDT RHYTHM ECG, REPORT Routine 03/11/2025 2: 12 PM EDT COLONOSCOPY Routine 12/14/2023 HEPATITIS C SCREENING Routine 06/04/2015 HIV SCREENING Routine 06/04/2015 from Last 3 Months or Most Recently Relevant to Health Maintenance Results * US Abdomen Limited (05/20/2025 10:26 AM EST) Anatomical Region Laterality Modality Body Ultrasound 05/23/2025 11:3 1 AM EST Impressions 05/23/2025 11:32 AM EST No acute abnormality. -------- FINAL REPORT -------- Dictated By: Shelli Shoemaker Dictated Date: 05/23/2025 11:31 ET Assigned Physician: Shelli Shoemaker Reviewed and Electronically Signed By: Shelli Shoemaker Signed Date: 05/23/2025 11:32 ET Workstation ID: [id number] Transcribed By: Self Edit Transcribed Date: 05/23/2025 11:31 ET Narrative 05/23/2025 11:32 AM EST Exam: US ABDOMEN LIMITED Date of Study: 05/20/2025 10:10 AM CLINICAL INFORMATION: RUQ abd pain TECHNIQUE: Real-time ultrasound scanning of the region of interest performed by the trial justice. Clinical Application Consultant static images and video clips are submitted for review. FINDINGS: The liver is unremarkable. Normal direction of flow within the portal vein. Slightly echogenic suggesting hepatic steatosis. Visible portions of the pancreas are unremarkable. Gallbladder is unremarkable. No gallstones or distention. Absent sonographic Montes sign. No biliary dilatation. No evidence for right kidney mass or hydronephrosis. No ascites. IVC unremarkable. Procedure Note Shelli Shoemaker MD - 05/23/2025 Exam: US ABDOMEN LIMITED Date of Study: 05/20/2025 10:10 AM CLINICAL INFORMATION: RUQ abd pain TECHNIQUE: Real-time ultrasound scanning of the region of interestperformed by the trial justice. Clinical Application Consultant static images and video clipsare submitted for review. FINDINGS: The liver is unremarkable. Normal direction of flow within the portalvein. Slightly echogenic suggesting hepatic steatosis. Visible portions of the pancreas are unremarkable. Gallbladder is unremarkable. No gallstones or distention. Absentsonographic Montes sign. No biliary dilatation. No evidence for right kidney mass or hydronephrosis. No ascites. IVC unremarkable. IMPRESSION: No acute abnormality. -------- FINAL REPORT -------- Dictated By: Shelli Shoemaker Dictated Date: 05/23/2025 11:31 ET Assigned Physician: Shelli Shoemaker Reviewed and Electronically Signed By: Shelli Shoemaker Signed Date: 05/23/2025 11:32 ET Workstation ID: [id number] Transcribed By: Self Edit Transcribed Date: 05/23/2025 11:31 ET us Emma DOS SANTOS IMG US PROCEDURES Final Resul t * NM EXERCISE STRESS TEST W/ MYOCARDIAL PERFUSION (04/28/2025 10:30 AM EST) Exercise/injec tion duration (min) 6 CV PACS STRESS Exercise/injec tion duration (sec) 18 CV PACS STRESS Peak SBP 146 mmHg CV PACS STRESS Peak DBP 70 mmHg CV PACS STRESS Peak HR 153 bpm CV PACS STRESS Baseline HR 92 bpm CV PACS STRESS Baseline SBP 123 mmHg CV PACS STRESS Baseline DBP 88 mmHg CV PACS STRESS Estimated workload 7.0 METS CV PACS STRESS Percent HR 89 % CV PACS STRESS Rate Pressure Product 22,338.0 mmHg*bpm CV PACS STRESS Target HR 146 bpm CV PACS STRESS TID 0.80 CV PACS STRESS Nuc Stress EF 66 % CV PAC S STRESS Nuc Rest EF 68 % CV PACS STRESS BSA 2.53 m2 CV PACS STRESS Anatomical Region Laterality Modality Nuclear Medicine 04/28/2025 9:01 AM EST 04/28/2025 9:31 AM EST Narrative 04/28/2025 5:40 PM EST Normal exercise nuclear perfusion stress test at a target heart rate and adequate functional capacity. LV perfusion is normal with no ischemia or infarct. Normal left ventricular function post-stress. Stress ejection fraction is 66%. Patient reported no chest pain during the stress test. Exercise capacity was below average. Normal blood pressure response. Stress Findings A Jackson protocol stress test was performed. Overall, the patient's exercise capacity was below average. Total stress time was 6 min and 18 sec. The test was stopped because the patient experienced fatigue. Blood pressure demonstrated a normal response. Heart rate demonstrated a normal response. The patient reported no chest pain during the stress test. ECG 50 year old male with history of recent visit to the ED for epigastric and bilateral arm pain. PMH includes HTN, HLD and obesity. The ECG shows normal sinus rhythm. The ECG axis is normal. Arrhythmias during stress: rare premature ventricular contractions (PVCs) (one PVC). There is no significant ST abnormalities during stress. There were no arrhythmias during recovery. Nuclear Study Quality Study technique: MPI, SPECT, multi, rest and stress, 1 day and gated. Overall image quality is good. CT attenuation correction was utilized. No radiopharmaceutical dose was extravasated. Perfusion Defect Conclusion There is no evidence of transient ischemic dilation (TID). Stress Function Comments Left ventricular systolic function post-stress is normal. Stress ejection fraction is 66%. The stress end diastolic cavity size is normal. Rest Function Comments Left ventricular function at rest was normal. Resting ejection fraction was 68%. The rest end diastolic cavity size is normal. CT Findings No obvious coronary artery calcification noted. Perfusion Comments LV perfusion is normal. There is no evidence of inducible ischemia. us Jaylen Maravilla MD CV STRESS PROCEDURES Final Result * (ABNORMAL) Thyroid stimulating hormone with reflex to free t4 and free t3 (04/20/2025 9:13 AM EDT) TSH 0.21(L) 0.40 - 4.00 mcIU/mL LAB CHEMISTRY METHOD 04/20/2025 2:12 PM EDT [facility] Blood Venous blood specimen / Unknown Venipuncture / Unknown 04/20/2025 9:13 AM EDT 04/20/2025 9:13 AM EDT [facility] BLOOD ORDERABLES Fi nal Result Performing Organization Address [facility]/ZIP Co de Phone Number [facility] [address] [place] [address], [place] [phone] * Free thyroxine with reflex to free triiodothyronine (04/20/2025 9:13 AM EDT) Free T4 1.10 0.70 - 1.80 ng/dL LAB CHEMISTRY METHOD 04/20/2025 3:25 PM EDT [facility] Blood Venous blood specimen / Unknown Venipuncture / Unknown 04/20/2025 9:13 AM EDT 04/20/2025 9:13 AM EDT [facility] BLOOD ORDERABLES Fi nal Result [facility] [address] [place] [address], [place] [phone] * Triiodothyronine free (04/20/2025 9:13 AM EDT) T3, Free 318 230 - 420 pcg/dL LAB CHEMISTRY METHOD 04/20/2025 4:26 PM EDT [facility] Blood Venous blood specimen / Unknown Venipuncture / Unknown 04/20/2025 9:13 AM EDT 04/20/2025 9:13 AM EDT Paulina DOS SANTOS LAB BLOOD ORDERABLES Fi nal Result Performing Organization Address [facility]/ZIP Co de Phone Number [facility] [address] [place] [address], [place] [phone] * Vitamin B12 (04/20/2025 9:13 AM EDT) [facility] Vitamin B-12 481 250 - 900 pcg/mL LAB CHEMISTRY METHOD 04/20/2025 1:40 PM EDT [facility] Blood Venous blood specimen / Unknown Venipuncture / Unknown 04/20/2025 9:13 AM EDT 04/20/2025 9:13 AM EDT Paulina Huynh [place] LAB BLOOD ORDERABLES Fi nal Result Performing Organization Address City/[facility]/ZIP Co de Phone Number [facility] [address] [place] [address], [place] [phone] * (ABNORMAL) Lipid panel with reflex to direct LDL (04/13/2025 7:50 AM EDT) [facility] Cholesterol 137 0 - 200 mg/dL LAB CHEMISTRY METHOD 04/13/2025 11:08 AM EDT [facility] Triglycerides 179(H) 0 - 150 mg/dL LAB CHEMISTRY METHOD 04/13/2025 11:08 AM EDT [facility] HDL 51 >=40 mg/dL LAB CHEMISTRY METHOD 04/13/2025 11:08 AM EDT [facility] LDL Calculated 50 0 - 100 mg/dL LAB CHEMISTRY METHOD 04/13/2025 11:08 AM EDT [facility] Comment:Estimated LDL Calcul ated using equation: Total cholesterol - HDL cholesterol - (Triglycerides/5) VLDL Cholesterol Daniel 35.8 mg/dL LAB CHEMISTRY METHOD 04/13/2025 11:08 AM EDT [facility] Non HDL Chol. (LDL+VLDL) 86 <145 mg/dL LAB CHEMISTRY METHOD 04/13/2025 11:08 AM EDT [facility] Chol/HDL Ratio 2.7 0.0 - 4.4 LAB CHEMISTRY METHOD 04/13/2025 11:08 AM EDT [facility] Blood Venous blood specimen / Unknown Venipuncture / Unknown 04/13/2025 7:50 AM EDT 04/13/2025 7:50 AM EDT Paulina DOS SANTOS LAB BLOOD ORDERABLES Fi nal Result Performing Organization Address City/[facility]/ZIP Co de Phone Number [facility] [address] [place] [address], [place] [phone] * Hemoglobin A1c (04/13/2025 7:50 AM EDT) [facility] Hemoglobin A1C 5.8 <6.5 % LAB CHEMISTRY METHOD 04/13/2025 11:49 AM EDT [facility] Mean Bld Glu Estim. 120 mg/dL LAB CHEMISTRY METHOD 04/13/2025 11:49 AM EDT [facility] Blood Venous blood specimen / Unknown Venipuncture / Unknown 04/13/2025 7:50 AM EDT 04/13/2025 7:50 AM EDT Paulina DOS SANTOS LAB BLOOD ORDERABLES Fi nal Result [facility] [address] [place] [address], [place] [phone] * Vascular US Duplex Lower Extremity Venous Bilateral (04/10/2025 12:06 PM EDT) Anatomical Region Laterality Modality Vascular, Abdomen Ultrasound 04/10/2025 12:0 8 PM EDT Impressions 04/10/2025 12:08 PM EDT Impression: No evidence of deep vein thrombosis in the femoral-popliteal venous segments of both lower extremities. Telerad PA ([id number]) -------- FINAL REPORT -------- Dictated By: Caterina Peterson Dictated Date: 04/10/2025 12:08 ET Assigned Physician: Caterina Peterson Reviewed and Electronically Signed By: Caterina Peterson Signed Date: 04/10/2025 12:08 ET Workstation ID: [id number] Transcribed By: Self Edit Transcribed Date: 04/10/2025 12:08 ET Narrative 04/10/2025 12:08 PM EDT History: Bilateral lower extremity pain. Findings: Duplex and color Doppler imaging of the deep venous system of both lower extremities was performed from the inguinal ligaments to the popliteal fossa. The common femoral, femoral and popliteal veins are patent and compress completely. Normal spontaneous and phasic venous flow is demonstrated with Doppler. There is normal flow augmentation with calf compression bilaterally. The deep calf veins, as visualized, are compressible. Procedure Note Caterina Peterson MD - 04/10/2025 History: Bilateral lower extremity pain. Findings: Duplex and color Doppler imaging of the deep venous system of both lowerextremities was performed from the inguinal ligaments to the poplitealfossa. The common femoral, femoral and popliteal veins are patent andcompress completely. Normal spontaneous and phasic venous flow isdemonstrated with Doppler. There is normal flow augmentation with calfcompression bilaterally. The deep calf veins, as visualized, are compressible. IMPRESSION: Impression: No evidence of deep vein thrombosis in the femoral-popliteal venoussegments of both lower extremities. Telerad LEVON ([id number]) -------- FINAL REPORT -------- Dictated By: Caterina Peterson Dictated Date: 04/10/2025 12:08 ET Assigned Physician: Caterina Peterson Reviewed and Electronically Signed By: Caterina Peterson Signed Date: 04/10/2025 12:08 ET Workstation ID: [id number] Transcribed By: Self Edit Transcribed Date: 04/10/2025 12:08 ET us Ethan Junior Rashard MD CV VASCULAR PROCEDURES Fin al Result * MR Brain wo Contrast (04/08/2025 9:39 AM EDT) Anatomical Region Laterality Modality Head and Neck Magnetic Resonan ce 04/10/2025 9:27 AM EDT Impressions 04/10/2025 9:53 AM EDT Normal brain MRI without contrast. No change dating back to 03/05/2024. -------- FINAL REPORT -------- Dictated By: WILLIE CAZARES Dictated Date: 04/10/2025 09:27 ET Assigned Physician: WILLIE CAZARES Reviewed and Electronically Signed By: WILLIE CAZARES Signed Date: 04/10/2025 09:53 ET Workstation ID: [id number] Transcribed By: Self Edit Transcribed Date: 04/10/2025 09:48 ET Narrative 04/10/2025 9:53 AM EDT PROCEDURE: Brain MRI INDICATION: Headache, dizziness TECHNIQUE: Multiplanar, multisequence MRI of the brain Without contrast. COMPARISON: 09/22/2024 and 03/05/2024 MRI. FINDINGS: No acute infarct, mass effect, or intracranial hemorrhage. Sella and foramen magnum are within normal limits and are similar compared to prior. Brain parenchyma is normal in signal for patient age. No abnormal intracranial susceptibility artifact. Ventricles, sulci, and cisterns are normal in size and configuration. No hydrocephalus. Major intracranial arterial flow voids are normal. Sinuses and mastoid air cells are clear. Orbits and skull base soft tissues are normal. Scalp soft tissues and calvarium are normal. Procedure Note Willie Cazares MD - 04/10/2025 PROCEDURE: Brain MRI INDICATION: Headache, dizziness TECHNIQUE: Multiplanar, multisequence MRI of the brain Without contrast. COMPARISON: 09/22/2024 and 03/05/2024 MRI. FINDINGS: No acute infarct, mass effect, or intracranial hemorrhage. Sella and foramen magnum are within normal limits and are similar comparedto prior. Brain parenchyma is normal in signal for patient age. No abnormalintracranial susceptibility artifact. Ventricles, sulci, and cisterns are normal in size and configuration. Nohydrocephalus. Major intracranial arterial flow voids are normal. Sinuses and mastoid air cells are clear. Orbits and skull base soft tissues are normal. Scalp soft tissues and calvarium are normal. IMPRESSION: Normal brain MRI without contrast. No change dating back to 03/05/2024. -------- FINAL REPORT -------- Dictated By: WILLIE CAZARES Dictated Date: 04/10/2025 09:27 ET Assigned Physician: WILLIE CAZARES Reviewed and Electronically Signed By: WILLIE CAZARES Signed Date: 04/10/2025 09:53 ET Workstation ID: [id number] Transcribed By: Self Edit Transcribed Date: 04/10/2025 09:48 ET us Chioma DOS SANTOS IMG MRI PROCEDURES Final Resu lt * ECG-Annotated (04/03/2025) Only the most recent of2 resultswithin the time period is included. us Provider Onbase MD ECG ORDERABLES Final Result * Troponin I high sensitivity (04/01/2025 12:11 PM EDT) Only the most recent of4 resultswithin the time period is included. High Sensitivity Troponin I 12 <=79 ng/L LAB CHEMISTRY METHOD 04/01/2025 1:09 PM EDT [facility] Blood Venous blood specimen / Unknown Venipuncture / Unknown 04/01/2025 12:11 PM EDT 04/01/2025 12:36 PM EDT Narrative [facility] - 04/01/2025 1:09 PM EDT High levels of biotin in samples may falsely decrease hsTroponin values. Use caution when interpreting hsTroponin results in patients taking biotin who exhibit renal impairment (eGFR <60) or in patients taking more than 20 mg/day of biotin. us Chula Dolan [employer]LE[employer] LAB BLOOD ORDERABLES Rowena l Result [facility] [address] [place] [address], [place] [phone] * XR Chest 2 Views (04/01/2025 11:18 AM EDT) Only the most recent of2 resultswithin the time period is included. Anatomical Region Laterality Modality Body Radiographic Any ging 04/01/2025 12:0 1 PM EDT Impressions 04/01/2025 12:09 PM EDT FINDINGS/IMPRESSION: Lungs are clear. No pleural effusion or pneumothorax. Cardiac silhouette is normal in size. Degenerative changes seen throughout the bones. -------- FINAL REPORT -------- Dictated By: WILLIE CAZARES Dictated Date: 04/01/2025 12:01 ET Assigned Physician: WILLIE CAZARES Reviewed and Electronically Signed By: WILLIE CAZARES Signed Date: 04/01/2025 12:09 ET Workstation ID: [id number] Transcribed By: Self Edit Transcribed Date: 04/01/2025 12:01 ET Narrative 04/01/2025 12:09 PM EDT XR CHEST 2 VIEWS INDICATION: Pain TECHNIQUE: XR CHEST 2 VIEWS COMPARISON: 03/11/2025 Procedure Note Willie Cazares MD - 04/01/2025 XR CHEST 2 VIEWS INDICATION: Pain TECHNIQUE: XR CHEST 2 VIEWS COMPARISON: 03/11/2025 IMPRESSION: FINDINGS/IMPRESSION: Lungs are clear. No pleural effusion orpneumothorax. Cardiac silhouette is normal in size. Degenerative changesseen throughout the bones. -------- FINAL REPORT -------- Dictated By: WILLIE CAZARES Dictated Date: 04/01/2025 12:01 ET Assigned Physician: WILLIE CAZARES Reviewed and Electronically Signed By: WILLIE CAZARES Signed Date: 04/01/2025 12:09 ET Workstation ID: [id number] Transcribed By: Self Edit Transcribed Date: 04/01/2025 12:01 ET us Chula Dolan [employer] RELE[employer] IMG XR PROCEDURES Final R esult * CBC auto differential (04/01/2025 10:56 AM EDT) Only the most recent of2 resultswithin the time period is included. [facility] Signature WBC 8.6 4.8 - 10.8 K/mcL LAB HEMETOLOGY METHOD 04/01/2025 11:22 AM [facility] RBC 5.20 4.50 - 5.50 M/mcL LAB HEMETOLOGY METHOD 04/01/2025 11:22 AM [facility] Hemoglobin 15.0 13.5 - 17.5 g/dL LAB HEMETOLOGY METHOD 04/01/2025 11:22 AM [facility] Hematocrit 46.6 42.0 - 54.0 % LAB HEMETOLOGY METHOD 04/01/2025 11:22 AM [facility] MCV 89.8 79.0 - 98.0 FL LAB HEMETOLOGY METHOD 04/01/2025 11:22 AM [facility] MCH 28.9 27.0 - 32.0 pcg LAB HEMETOLOGY METHOD 04/01/2025 11:22 AM [facility] MCHC 32.2 32.0 - 37.0 g/dL LAB HEMETOLOGY METHOD 04/01/2025 11:22 AM [facility] RDW 13.2 11.0 - 15.0 % LAB HEMETOLOGY METHOD 04/01/2025 11:22 AM [facility] Platelets 248 130 - 400 K/mcL LAB HEMETOLOGY METHOD 04/01/2025 11:22 AM [facility] MPV 10.7 7.0 - 11.0 FL LAB HEMETOLOGY METHOD 04/01/2025 11:22 AM [facility] NRBC 0.0 <1.0 % LAB HEMETOLOGY METHOD 04/01/2025 11:22 AM [facility] NRBC Absolute 0.00 <0.10 K/mcL LAB HEMETOLOGY METHOD 04/01/2025 11:22 AM [facility] Neutrophils Relative 72.0 % LAB HEMETOLOGY METHOD 04/01/2025 11:22 AM [facility] Lymphocytes Relative 21.0 % LAB HEMETOLOGY METHOD 04/01/2025 11:22 AM [facility] Monocytes Relative 5.6 % LAB HEMETOLOGY METHOD 04/01/2025 11:22 AM [facility] Eosinophils Relative 0.8 % LAB HEMETOLOGY METHOD 04/01/2025 11:22 AM [facility] Basophils Relative 0.5 % LAB HEMETOLOGY METHOD 04/01/2025 11:22 AM [facility] Immature Granulocytes Relative 0.1 % LAB HEMETOLOGY METHOD 04/01/2025 11:22 AM [facility] Neutrophils Absolute 6.19 1.50 - 7.00 K/mcL LAB HEMETOLOGY METHOD 04/01/2025 11:22 AM [facility] Lymphocytes Absolute 1.80 1.00 - 5.00 K/mcL LAB HEMETOLOGY METHOD 04/01/2025 11:22 AM [facility] Monocytes Absolute 0.48 0.20 - 1.00 K/mcL LAB HEMETOLOGY METHOD 04/01/2025 11:22 AM [facility] Eosinophils Absolute 0.07 0.00 - 0.50 K/mcL LAB HEMETOLOGY METHOD 04/01/2025 11:22 AM [facility] Basophils Absolute 0.04 0.00 - 0.20 K/mcL LAB HEMETOLOGY METHOD 04/01/2025 11:22 AM [facility] Immature Granulocytes Absolute 0.01 0.00 - 0.03 K/mcL LAB HEMETOLOGY METHOD 04/01/2025 11:22 AM [facility] Blood Venous blood specimen / Unknown Venipuncture / Unknown 04/01/2025 10:56 AM EDT 04/01/2025 11:16 AM EDT Chula Dolan [employer]LE[employer] LAB BLOOD ORDERABLES Rowena l Result Performing Organization Address [facility] de Phone Number [facility] [address] [place] [address], [place] [phone] * Protime-INR (04/01/2025 10:56 AM EDT) Only the most recent of2 resultswithin the time period is included. [facility] Protime 11.8 10.6 - 13.9 sec LAB COAGULATION METHOD 04/01/2025 11:33 AM EDT [facility] INR 0.9 LAB COAGULATION METHOD 04/01/2025 11:33 AM EDT [facility] Blood Venous blood specimen / Unknown Venipuncture / Unknown 04/01/2025 10:56 AM EDT 04/01/2025 11:16 AM EDT Chula Dolan NP LAB BLOOD ORDERABLES Rowena l Result Performing Organization Address [facility] de Phone Number [facility] [address] [place] [address], [place] [phone] * D-dimer, quantitative (04/01/2025 10:56 AM EDT) [facility] D-Dimer, Quant (D-DU) 177 <=230 ng/mL DDU LAB COAGULATION METHOD 04/01/2025 11:33 AM EDT [facility] Blood Venous blood specimen / Unknown Venipuncture / Unknown 04/01/2025 10:56 AM EDT 04/01/2025 11:16 AM EDT Narrative [facility] - 04/01/2025 11:33 AM EDT D-Dimer <230 ng/mL (D-Dimer units) is the threshold for exclusion of DVT/PE. D-Dimer may be elevated in: Critically ill, severely infected, trauma patients, DIC, acute CVA, acute ME, unstable angina, AF, old age, , and smoking. D-Dimer may be decreased with: Initiation of heparin therapy and oral anticoagulants. us Chula Dolan NP LAB BLOOD ORDERABLES Rowena andrews Result [facility] [address] [place] [address], [place] [phone] * (ABNORMAL) Basic metabolic panel (04/01/2025 10:56 AM EDT) Sodium 139 133 - 145 mmol/L LAB CHEMISTRY METHOD 04/01/2025 11:41 AM [facility] Potassium 4.6 3.5 - 5.5 mmol/L LAB CHEMISTRY METHOD 04/01/2025 11:41 AM [facility] Chloride 104 96 - 110 mmol/L LAB CHEMISTRY METHOD 04/01/2025 11:41 AM [facility] CO2 30 21 - 32 mmol/L LAB CHEMISTRY METHOD 04/01/2025 11:41 AM [facility] Anion Gap 5 3 - 11 LAB CHEMISTRY METHOD 04/01/2025 11:41 AM [facility] Glucose 112(H) 70 - 100 mg/dL LAB CHEMISTRY METHOD 04/01/2025 11:41 AM [facility] BUN 12 5 - 25 mg/dL LAB CHEMISTRY METHOD 04/01/2025 11:41 AM [facility] Creatinine 1.13 0.70 - 1.30 mg/dL LAB CHEMISTRY METHOD 04/01/2025 11:41 AM [facility] eGFR 80 >=60 mL/min/1. 73m2 LAB CHEMISTRY METHOD 04/01/2025 11:41 AM EDT [facility] Comment:Calculation based on the Chronic Kidney Disease Epidemiology Collaboration (CKD-EPI) equation refit without adjustment for race. BUN/Creatinine Ratio 10.6 LAB CHEMISTRY METHOD 04/01/2025 11:41 AM EDT [facility] Calcium 9.3 8.5 - 10.5 mg/dL LAB CHEMISTRY METHOD 04/01/2025 11:41 AM EDT [facility] Blood Venous blood specimen / Unknown Venipuncture / Unknown 04/01/2025 10:56 AM EDT 04/01/2025 11:16 AM EDT us Chula Dolan NP LAB BLOOD ORDERABLES Rowena andrews Result [facility] [address] [place] [address], * CT Head wo Contrast (03/30/2025 8:49 AM EDT) Anatomical Region Laterality Modality Head and Neck Computed Tomogra phy 03/30/2025 9:34 AM EDT Impressions 03/30/2025 9:40 AM EDT No acute intracranial pathology. Empty sella. -------- FINAL REPORT -------- Dictated By: Danielle Patel Dictated Date: 03/30/2025 09:34 ET Assigned Physician: Danielle Patel Reviewed and Electronically Signed By: Danielle Patel Signed Date: 03/30/2025 09:40 ET Workstation ID: [id number] Transcribed By: Self Edit Transcribed Date: 03/30/2025 09:34 ET Narrative 03/30/2025 9:[address] HEAD WO CONTRAST HISTORY: Episode of headache, speech difficulty, dizziness. TECHNIQUE: Contiguous axial images were obtained from the skull base to the vertex without contrast. PRIOR STUDIES: CT head 12/23/2024. MR brain 09/22/2024. FINDINGS: There is no acute intracranial hemorrhage. The molina/white matter differentiation is preserved. The ventricles and sulci are normal in size and symmetric. The basal cisterns are patent. There is no mass effect or midline shift. There are no intra or extra-axial fluid collections identified. No skull fractures are seen. The visualized paranasal sinuses and mastoid air cells are clear. There is no abnormality at the foramen magnum. There is an empty sella. Procedure Note Danielle Patel MD - 03/30/2025 CT HEAD WO CONTRAST HISTORY: Episode of headache, speech difficulty, dizziness. TECHNIQUE: Contiguous axial images were obtained from the skull base tothe vertex without contrast. PRIOR STUDIES: CT head 12/23/2024. MR brain 09/22/2024. FINDINGS: There is no acute intracranial hemorrhage. The molina/white matterdifferentiation is preserved. The ventricles and sulci are normal in sizeand symmetric. The basal cisterns are patent. There is no mass effect ormidline shift. There are no intra or extra-axial fluid collectionsidentified. No skull fractures are seen. The visualized paranasal sinuses and mastoidair cells are clear. There is no abnormality at the foramen magnum. There is an empty sella. IMPRESSION: No acute intracranial pathology. Empty sella. -------- FINAL REPORT -------- Dictated By: Danielle Patel Dictated Date: 03/30/2025 09:34 ET Assigned Physician: Danielle Patel Reviewed and Electronically Signed By: Danielle Patel Signed Date: 03/30/2025 09:40 ET Workstation ID: [id number] Transcribed By: Self Edit Transcribed Date: 03/30/2025 09:34 ET Chioma DOS SANTOS IMG CT PROCEDURES Final Resul t * Exercise stress test (03/27/2025 12:42 PM EDT) Exercise/inject ion duration (min) 6 CV STRESS ONLY Exercise/inject ion duration (sec) 37 CV STRESS ONLY Peak SBP 148 mmHg CV STRESS ONLY Peak DBP 76 mmHg CV STRESS ONLY Peak HR 176 bpm CV STRESS ONLY Baseline HR 87 bpm CV STRES S ONLY Baseline SBP 125 mmHg CV STRE SS ONLY Baseline DBP 75 mmHg CV STRE SS ONLY Estimated workload 8.7 METS CV STRESS ONLY Percent HR 102 % CV STRESS ONLY Rate Pressure Product 26,048.0 mmHg*bpm CV STRESS ONLY Target HR 146 bpm CV STRESS ONLY Angina Index 0 CV STRE SS ONLY Max HR Percent 102 % CV ST RESS ONLY Base ST Depresion (mm) 0 mm CV STRESS ONLY ST Depression (mm) 0 mm CV STRESS ONLY O2 sat rest 99 % CV STRES S ONLY O2 sat peak 99 % CV STRES S ONLY Anatomical Region Laterality Modality Cardiac Diagnost ic 03/27/2025 12:2 1 PM EDT 03/27/2025 12:55 PM EDT Narrative 03/27/2025 3:22 PM EDT Stress ECG was normal. Exercise stress test was performed. Exercise capacity was average. Normal blood pressure response. The patient exercised well. There were no ischemic symptoms or electrocardiogram changes. This was a normal stress test. Stress Findings A Jackson protocol stress test was performed. Overall, the patient's exercise capacity was average. The patient reached stage 3. Total stress time was 6 min and 37 sec. The patient experienced no angina during the test. The test was stopped because the patient experienced fatigue. The patient's hemodynamic response was adequate for diagnosis. Blood pressure demonstrated a normal response. Heart rate demonstrated a normal response. Onset of symptoms occurred at Stage 3 of the protocol. The patient reported fatigue during the stress test. ECG Mr. Beauchamp is a 50 y/o M with a past medical history of hypertension, hyperlipidemia, and obesity. He is here today for an evaluation of chest pain undergoing an exercise stress test. The ECG shows normal sinus rhythm. The ECG axis is normal. There is no myocardial infarction. Baseline ECG shows no ST-segment deviation. Arrhythmias during stress: rare premature ventricular contractions (PVCs) . There is no ST segment changes during stress. There were no arrhythmias during recovery. There were no ST changes. The result of the stress ECG was negative for ischemia. us Chioma DOS SANTOS CV STRESS PROCEDURES Final Re sult * CARDIAC HOLTER MONITOR (REPORT GENERATED IN HOUSE) (03/24/2025 9:05 AM EDT) Anatomical Region Laterality Modality Cardiac Diagnost ic Narrative 03/28/2025 1:[address] [facility]PARTMENT [address], [address], [place] [address] TEL: FAX: Type of Test: 48 Hour Holter Monitor Date of Test: 03/24/2025- 03/28/2025 Ordering Provider: LEVON Love Reason for Test: Intermittent chest pain; Dizziness Findings: 1: Normal Sinus Rhythm and episodes of Sinus Tachycardia. 2: Heart rate range was 52-150 bpm with an average of 85 bpm. Total time in Sinus Tachycardia: 8 hrs 47 mins. 3: Rare PACs and one atrial pair. Rare PVCs. 4: No significant pause noted, longest R-R was 1.3 seconds at 6:16 AM. 5: Diary returned with symptoms of palpitations, lightheadedness, shortness of breath, dizziness, and chest pain noted. EKG at those times showed Normal Sinus Rhythm with brief episodes of Sinus Tachycardia and an isolated PVC. Heart rates were in the range of 88-125 bpm. us Chioma DOS SANTOS CV CARDIAC SERVICES PROCEDURE S Final Result * Urinalysis with reflex microscopic and culture (03/11/2025 6:38 PM EDT) Specific [place] Urine 1.020 1.003 - 1.030 LAB URINALYSIS - AUTOMATED METHOD 03/11/2025 7:08 PM [facility] pH, Urine 6.0 5.0 - 8.0 pH LAB URINALYSIS - AUTOMATED METHOD 03/11/2025 7:08 PM [facility] Leukocytes, Urine Negative Negative LAB URINALYSIS - AUTOMATED METHOD 03/11/2025 7:08 PM [facility] Nitrite, Urine Negative Negative LAB URINALYSIS - AUTOMATED METHOD 03/11/2025 7:08 PM [facility] Protein, Urine Trace <=Trace mg/dL LAB URINALYSIS - AUTOMATED METHOD 03/11/2025 7:08 PM [facility] Glucose, Urine Negative Negative mg/dL LAB URINALYSIS - AUTOMATED METHOD 03/11/2025 7:08 PM EDT [facility] Ketones, Urine Negative Negative mg/dL LAB URINALYSIS - AUTOMATED METHOD 03/11/2025 7:08 PM EDT [facility] Urobilinogen, Urine 1.0 0.2 - 1.0 mg/dL LAB URINALYSIS - AUTOMATED METHOD 03/11/2025 7:08 PM EDT [facility] Bilirubin, Urine Negative Negative LAB URINALYSIS - AUTOMATED METHOD 03/11/2025 7:08 PM EDT [facility] Blood, Urine Negative Negative LAB URINALYSIS - AUTOMATED METHOD 03/11/2025 7:08 PM EDT [facility] Urine Urine specimen obtained by clean catch procedure / Unknown Non-blood Collection / Unknown 03/11/2025 6:38 PM EDT 03/11/2025 6:50 PM EDT us Matthew Pepe MD LAB URINE ORDERABLES Final Res ult Performing Organization Address City/[facility]/ZIP Co de Phone Number [facility] [address] [place] [address], [place] [phone] * Molina urine culture tube (03/11/2025 6:38 PM EDT) Extra Tube Hold for add-ons. 03/11/2025 8:01 PM EDT [facility] Comment:Auto resulted. Urine Urine specimen obtained by clean catch procedure / Unknown Non-blood Collection / Unknown 03/11/2025 6:38 PM EDT 03/11/2025 6:50 PM EDT us Matthew Pepe MD LAB URINE ORDERABLES Final Res ult [facility] [address] [place] [address], [place] [phone] * Blood Culture, Peripheral #1 (03/11/2025 5:48 PM EDT) Only the most recent of2 resultswithin the time period is included. Culture, Blood No growth at 5 days 2025 7:01 PM EDT [facility] Blood Venous blood specimen / Unknown Venipuncture / Unknown 03/11/2025 5:48 PM EDT 03/11/2025 5:55 PM EDT us Matthew Pepe MD LAB MICROBIOLOGY - GENERAL ORD ERABLES Final Result Performing Organization Address City/[facility]/ZIP Co de Phone Number [facility] [address] [place] [address], [place] [phone] * Lactate, with reflex (03/11/2025 3:11 PM EDT) Pathologist [facility] LACTIC ACID 1.8 0.4 - 2.0 mmol/L LAB CHEMISTRY METHOD 03/11/2025 3:53 PM EDT [facility] Blood Venous blood specimen / Unknown Venipuncture / Unknown 03/11/2025 3:11 PM EDT 03/11/2025 3:25 PM EDT us Matthew Pepe MD LAB BLOOD ORDERABLES Final Res ult Performing Organization Address City/[facility]/ZIP Co de Phone Number [facility] [address] [place] [address], [place] [phone] * B-type natriuretic peptide (03/11/2025 3:11 PM EDT) BNP 13 <=100 pcg/mL LAB CHEMISTRY METHOD 03/11/2025 4:43 PM EDT [facility] Blood Venous blood specimen / Unknown Venipuncture / Unknown 03/11/2025 3:11 PM EDT 03/11/2025 3:24 PM EDT us Matthew Pepe MD LAB BLOOD ORDERABLES Final Res ult Performing Organization Address [facility]/ZIP Co de Phone Number [facility] [address] [place] [address], [place] [phone] * Magnesium (03/11/2025 3:11 PM EDT) Pathologist [facility] Magnesium 2.1 1.9 - 2.6 mg/dL LAB CHEMISTRY METHOD 03/11/2025 3:51 PM EDT [facility] Blood Venous blood specimen / Unknown Venipuncture / Unknown 03/11/2025 3:11 PM EDT 03/11/2025 3:24 PM EDT us Matthew Pepe MD LAB BLOOD ORDERABLES Final Res ult Performing Organization Address [facility] Co de Phone Number [facility] [address] [place] [address], [place] [phone] * Lipase (03/11/2025 3:11 PM EDT) [facility] Lipase 17 13 - 75 unit/L LAB CHEMISTRY METHOD 03/11/2025 3:51 PM EDT [facility] Blood Venous blood specimen / Unknown Venipuncture / Unknown 03/11/2025 3:11 PM EDT 03/11/2025 3:24 PM EDT us Matthew Pepe MD LAB BLOOD ORDERABLES Final Res ult Performing Organization Address City/[facility]/ZIP Co de Phone Number [facility] [address] [place] [address], [place] [phone] * Comprehensive metabolic panel (03/11/2025 3:11 PM EDT) Pathologist [facility] Sodium 139 133 - 145 mmol/L LAB CHEMISTRY METHOD 03/11/2025 3:52 PM EDT [facility] Potassium 4.3 3.5 - 5.5 mmol/L LAB CHEMISTRY METHOD 03/11/2025 3:52 PM [facility] Chloride 105 96 - 110 mmol/L LAB CHEMISTRY METHOD 03/11/2025 3:52 PM [facility] CO2 28 21 - 32 mmol/L LAB CHEMISTRY METHOD 03/11/2025 3:52 PM [facility] Anion Gap 6 3 - 11 LAB CHEMISTRY METHOD 03/11/2025 3:52 PM [facility] Glucose 92 70 - 100 mg/dL LAB CHEMISTRY METHOD 03/11/2025 3:52 PM [facility] BUN 12 5 - 25 mg/dL LAB CHEMISTRY METHOD 03/11/2025 3:52 PM [facility] Creatinine 1.06 0.70 - 1.30 mg/dL LAB CHEMISTRY METHOD 03/11/2025 3:52 PM [facility] eGFR 87 >=60 mL/min/1. 73m2 LAB CHEMISTRY METHOD 03/11/2025 3:52 PM [facility] Comment:Calculation based on the Chronic Kidney Disease Epidemiology Collaboration (CKD-EPI) equation refit without adjustment for race. BUN/Creatinine Ratio 11.3 LAB CHEMISTRY METHOD 03/11/2025 3:52 PM [facility] Calcium 9.1 8.5 - 10.5 mg/dL LAB CHEMISTRY METHOD 03/11/2025 3:52 PM [facility] AST (SGOT) 22 10 - 42 unit/L LAB CHEMISTRY METHOD 03/11/2025 3:52 PM [facility] ALT (SGPT) 35 10 - 60 unit/L LAB CHEMISTRY METHOD 03/11/2025 3:52 PM [facility] Alkaline Phosphatase 73 42 - 121 unit/L LAB CHEMISTRY METHOD 03/11/2025 3:52 PM [facility] Total Protein 7.2 6.0 - 8.0 g/dL LAB CHEMISTRY METHOD 03/11/2025 3:52 PM EDT [facility] Albumin 4.1 3.2 - 5.0 g/dL LAB CHEMISTRY METHOD 03/11/2025 3:52 PM EDT [facility] Total Bilirubin 0.3 0.0 - 1.4 mg/dL LAB CHEMISTRY METHOD 03/11/2025 3:52 PM EDT [facility] Blood Venous blood specimen / Unknown Venipuncture / Unknown 03/11/2025 3:11 PM EDT 03/11/2025 3:24 PM EDT us Matthew Pepe MD LAB BLOOD ORDERABLES Final Res ult Performing Organization Address City/[facility]/ZIP Co de Phone Number [facility] [address] [place] [address], [place] [phone] * ECG 12 lead (03/11/2025 2:12 PM EDT) Ventricular Rate ECG 92 BPM GEMUSE Atrial Rate 92 BPM GEMUSE P-R Interval 162 ms GEMUSE QRS Duration 84 ms GEMUSE Q-T Interval 334 ms GEMUSE QTc 413 ms GEMUSE P Wave [place] 54 degrees GEMUSE R [place] 39 degrees GEMUSE T [place] 35 degrees GEMUSE ECG Interpretation Normal sinus rhythm Normal ECG When compared with ECG of 27-FEB-2025 23:00, No significant change was found Confirmed by Sia CAPUTO JAMES ([id number]) on 03/11/2025 10:29:03 PM GEMUSE 03/11/2025 2:12 PM EDT 03/11/2025 10:29 PM EDT us Matthew Pepe MD ECG ORDERABLES Final Result Performing Organization Address City/[facility]/ZIP Co de Phone Number GEMUSE * RHYTHM ECG, REPORT (03/11/2025 2:12 PM EDT) Narrative Matthew Pepe MD - 03/11/2025 2:12 PM EDT Matthew Pepe MD 03/11/2025 6:34 PM ECG Rhythm Interpretation and Report Date/Time: 03/11/2025 2:12 PM Performed by: Matthew Pepe MD Authorized by: Matthew Pepe MD ECG interpreted by ED Physician in the absence of a guide: yes Previous ECG: Previous ECG: Compared to current Similarity: No change Interpretation: Interpretation: normal Quality: Tracing quality: Limited by artifact Rate: ECG rate assessment: normal Rhythm: Rhythm: sinus rhythm Ectopy: Ectopy: none QRS: QRS axis: Normal Comments: EKG shows sinus rhythm at [address] changes, no T wave inversions, normal axis, normal R wave progression, unchanged compared with EKG from 02/27/2025, independently reviewed and interpreted contemporaneously by me as a normal and nonischemic EKG. Result [facility] Matthew Pepe MD ECG ORDERABLES Final Result * Colonoscopy (12/14/2023) [facility] Colonoscopy no interpretation , abstracted Anatomical Region Laterality Modality Other Result [facility] Provider HEALTH MAINTENANCE Final Result * HIV Screening (06/04/2015) [facility] HIV Screening ABSTRACTED [facility] Provider HEALTH MAINTENANCE Final Result * Hepatitis C Screening (06/04/2015) [facility] Hepatitis C Screening ABSTRACTED [facility] Provider HEALTH MAINTENANCE Final Result from Last 3 Months or Most Recently Relevant to Health Maintenance [place] [address] [place] [address] HEALTH PLAN [facility] Care Teams Welding Equipment Repairer Relationship Specialty Start Date End Date Sunil Renae MD [address] [place] [phone] PCP - General Internal Medicine 04/08/13
--- OUTSIDE RECORDS SUMMARY | 2025-06-02 20:16 | XMS_ITS | Data Portability ---
Author Organization [place] - [facility], Allergy Address [address] [place] [phone] Assessment Encounter Date Assessment Date Assessment LastModified by Organization Details LastModified Time 02/08/2025 02/08/2025 49 year old Urdu speaking male presents for evaluation of dizziness. Audiometric testing demonstrates normal sloping to mild sensorineural hearing loss bilaterally, slightly worse on the right. Otoscopic examination is unremarkable with no effusion or infection. [place] is negative for nystagmus. Romberg and Fukuda marching test are also negative. The patient's history and symptoms seem most consistent with vestibular migraine, especially given his history of migraine headaches. We discussed the pathophysiology of migraine and how it can mask as dizziness or balance disturbance. I provided the patient with the Migraine More than a Headache booklet which lists many environmental and dietary triggers that can lead to migraines, as well as ways to manage these symptoms. I also recommend dietary supplements such as magnesium, Vitamin B2, and feverfew (or Migranol which contains a combination of all three) to help control migrainous phenomena. Additionally, the patient was encouraged to keep a migraine diary to assist with identifying and eliminating potential triggers. With regards to his hearing loss, there is not enough asymmetry to warrant retrocochlear workup at this time. Instead, I will plan to see him back in 1 year for repeat audiometric testing to ensure stable hearing. I also recommend he speak with his neurologist about adjusting his nortriptyline dose given his adverse reactions to it. The patient understands and agrees with this plan. All questions were answered. [email or web address] Not available 02/08/2025 18:52:26 Plan of Treatment Reminders Order Date Submit Date Provider Last Modified By Organization Details Last Modified Time Details Appointments Hearing Test 08/25/ 2026 10:00A M Hearing Test Not available Not available Not available Establish ed 15 2025 10:30A M LEVON JAQUEZ Not available Not available Not available Lab None recorded. Referral None recorded. Procedures None recorded. Surgeries None recorded. Imaging None recorded. Medication Orders None recorded. Patient TargetsNo targets recorded. Patient InstructionsNo instructions recorded. Reason for Referral None Reported. Results Created Date Observation Date Name Description Value Unit Range Abnormal Flag Note LastModifiedBy Organization Detail LastModifiedTime 02/09/20 audio gram No observ ation record ed. BARCODE Not Available 2024 17:06:06 Result Notes None recorded. Problems Name Problem SNOMED Code Status Onset Date Resolution Date Notes Provider Name and Address Organization Details Recorded Time Sensorineural hearing loss of bilateral ears 677593988 Active 2024 Eric INGRAM [address] [facility],ST [address] [facility], [place], [phone], [facility] - [facility] 13:38:46 Loss of equilibrium 66459447 Active 2024 LEVON JAQUEZ [address] [facility], E [facility], [place], [phone], [facility] - [facility] 18:52:59 Migraine variants 333628537 Active 2024 LEVON JAQUEZ [address] [facility], E [facility], [place], [phone], [facility] - [facility] 18:53:14 Migraine with aura 1554346 Active 2024 LEVON JAQUEZ [address] [facility], E [facility], [place], [phone], [facility] - [facility] [place] 18:53:41 Problem Notes None recorded. Procedures Surgical History Date Name Laterality Status Provider Name and Address Organization Details Recorded Time 02/08/2025 Comp Audio with Tymps - 41337 & 57537 completed Eric INGRAM [address] [facility],[address], [address], [facility] - [facility] [place] 02/08/2025 13:26:50 Imaging Results None recorded. Procedure Notes None recorded. Medical Equipment None Reported. Allergies Allergen ID Allergen Name Allergen Category Reaction Reaction Severity Criticality Documentation Date Start Date Code Code System Note Provider Name and Address Organization Details Recorded Time 290363 aspirin medicatio n Not available Not available Not available 02/08/2025 1191 RxNorm Katiana zhang [place] - [facility] 5 15:25:06 Medications Name Sig Start Date Stop Date Status Note LastModified by Organization Details LastModified Time nifedipine ER 30 mg tablet,exten ded release 24 hr TAKE 1 TABLET BY MOUTH DAILY active Not Available Not Available Not Available venlafaxine 75 mg tablet TAKE 1 TABLET BY MOUTH DAILY WITH FOOD active Not Available Not Available No t Available enalapril maleate 10 mg tablet TAKE 1 TABLET BY MOUTH DAILY active Not Available Not Available Not Available trazodone 50 mg tablet TAKE 1 TABLET BY MOUTH AT BEDTIME active Not Available Not Available No t Available polyethylene glycol 3350 17 gram oral powder packet DISSOLVE 1 PACKET IN WATER AND DRINK BY MOUTH THREE TIMES DAILY FOR 7 DAYS active Not Available Not Available N ot Available cetirizine 10 mg tablet TAKE 1 TABLET BY MOUTH DAILY active Not Available Not Available Not Available senna 8.6 mg tablet TAKE ONE TABLET BY MOUTH EVERY DAY FOR 14 DAYS active Not Available Not Available No t Available omeprazole 40 mg capsule,abbie yed release TAKE 1 CAPSULE BY MOUTH DAILY active Not Available Not Available Not Available butalbital-a cetaminophen -caffeine 50 mg-325 mg-40 mg tablet TAKE 1 TABLET BY MOUTH EVERY 6 HOURS FOR UP TO 5 DAYS NEEDED FOR HEADACHE active Not Available Not Available No t Available amoxicillin 500 mg tablet TAKE ONE TABLET BY MOUTH EVERY 8 HOURS FOR 7 DAYS active Not Available Not Available No t Available nortriptylin e 25 mg capsule TAKE 1 CAPSULE BY MOUTH DAILY AT BEDTIME active Not Available Not Available N ot Available famotidine 20 mg tablet TAKE 1 TABLET BY MOUTH AT BEDTIME active Not Available Not Available No t Available magnesium oxide 400 mg (241.3 mg magnesium) tablet TAKE 1 TABLET BY MOUTH DAILY active Not Available Not Available Not Available metocloprami de 5 mg tablet TAKE 1 TABLET BY MOUTH THREE TIMES DAILY BEFORE MEALS active Not Available Not Available No t Available pantoprazole 40 mg tablet,delay ed release TAKE 1 TABLET BY MOUTH DAILY active Not Available Not Available Not Available venlafaxine 37.5 mg tablet TAKE 1 TABLET BY MOUTH DAILY WITH FOOD active Not Available Not Available No t Available polyethylene glycol 3350 17 gram/dose oral powder MIX 17 GRAM WITH BEVERAGE AND TAKE BY MOUTH DAILY active Not Available Not Available Not Available verapamil 80 mg tablet TAKE 1 TABLET BY MOUTH TWICE DAILY active Not Available Not Available No t Available cyclobenzapr ine 5 mg tablet TAKE 1 TABLET BY MOUTH DAILY AT BEDTIME NEEDED active Not Available Not Available No t Available topiramate 50 mg tablet TAKE 1 TABLET BY MOUTH DAILY active Not Available Not Available Not Available sodium fluoride 1.1 % dental paste APPLY PEA SIZE AMOUNT TO TOOTHPASTE AND BRUSH FOR 2 MINUTES active Not Available Not Available No t Available Trulance 3 mg tablet TAKE 1 TABLET BY MOUTH DAILY active Not Available Not Available Not Available Vitals None Recorded Social History None recorded. Functional Status None recorded. Mental Status None recorded. Family History Nothing Reported. Medical History No medical history recorded. Gynecological HistoryNo gynecological history recorded. Obstetrics History GPAL:G 0 P 0 0 0 0 Past Encounters Encounter ID Performer Location Encounter Start Date Encounter Closed Date Diagnosis/Indication Diagnosis SNOMED-CT Code Diagnosis ICD10 Code Diagnosis IMO Codes Diagnosis Note [id number] LEVON JAQUEZ [facility] [address] [address] 02/08/2025 13:11:12 02/08/2025 15:52:53 Sensorineural hearing loss of bilateral ears 118560196 H90.3 [id number] Audiologic al evaluation results:Ri ght ear:Normal hearing from 250 through 2000 Hz sloping to a moderate sensorineu ral hearing loss with excellent word recognitio n.Left ear:Normal hearing from 250 through 2000 Hz sloping to a mild sensorineu ral hearing loss with excellent word recognitio n. Tympanomet ry:Right Ear:Type ALeft Ear:Type A Loss of equilibrium 8941 9008 R42 26982 Migraine variants 450505 005 G43.809 09266510 Migraine with aura 09972 06 G43.105 6204402 Health Concerns Section Related Observation LastModified by Organization Detai ls LastModified Time None Recorded Concern Status LastModified by Organization Details LastModified Time None Recorded Advance Directives Directive None Recorded Payers Insurance Date Sequence Insurance Name Policy Number Policy Krishnamurthy Covered Member ID Krishnamurthy Member ID Guarantor Name 04/28/2025 1 [employer] (PPO) [id number] Edmar Beauchamp [id number] Edmar Beauchamp 04/28/2025 1 [place] [id number] 3 Edmar Beauchamp [id number] KATARINA Beauchamp Notes Date Note Type Note Provider Name and Address Organization Details Recorded Time 02/08/2025 text/html ROS as noted in the HPI 49 year old Urdu speaking male presents for evaluation of dizziness. Patient reports onset began 7 months ago and continues to occur intermittently. The dizzy spells typically last for 1-1.5 hours, described as an off-balance sensation rather than room-spinning. Associated symptoms include headache, diplopia, photophobia, visual floaters, and a heavy feeling inside his head. Denies hearing fluctuations, tinnitus, phonophobia, nausea, and vomiting. History of migraines and sees a neurologist at [facility] who prescribed nortriptyline 75 mg at bedtime, however he stopped taking it due to nausea and low blood pressure. LYUDMILA GARCIA MD [address] [address], [phone], [facility] - [facility] 02/09/2025 10:01:00 OBGyn Episode No OBEpisode recorded.
--- OUTSIDE RECORDS SUMMARY | 2025-06-02 20:16 | XMS_ITS | Encounter Summary ---
Author Organization [employer] Address [address] [place] [address] Care Team Providers Care Patient Companion Name Role Phone Sunil Renae MD Primary Care Provider [phone] Encounter Details Date Type Department Care Team (Late st Contact Info) Description 03/28/2025 Results Follow-Up Adult Medicine [address] [phone] Chioma Reyna PA [address] [place] [address] Social History Tobacco Use Types Packs/Day Years Used Date Smoking Tobacco: Former Cigarettes 0.1 Q uit: 12/21/2023 Smokeless Tobacco: Never Alcohol [...] hearing? Answer Date of Assessment Author No 01/20/2025 12:19 PM EDT Chung Morrell, RN * Are you blind or do you have serious difficulty seeing, even when wearing glasses? Answer Date of Assessment Author No 01/20/2025 12:19 PM EDT Chung Morrell RN * Do you have serious difficulty walking or climbing stairs? Answer Date of Assessment Author No 01/20/2025 12:19 PM EDT Chung Morrell RN * Do you have serious difficulty dressing or bathing? Answer Date of Assessment Author No 01/20/2025 12:19 PM EDT Chung Morrell RN * Because of a physical, mental, or emotional condition, do you have serious difficulty doing errandsalone such as visiting the doctor? Answer Date of Assessment Author No 01/20/2025 12:19 PM EDT Chung Morrell RN * Calculated C-SSRS Risk Score (Lifetime/Recent) Answer Date of Assessment Author No Risk Indicated 04/24/2025 1:13 AM Steph Mcmillan RN * [place] Suicide Severity Rating Scale (Screener/Recent Self-Report) Question Answer Date of Assessment Author 1. Wish to be (Past 1 Month) No 1:13 AM Steph Mcmillan RN 2. Non-Specific Active Suici aidan Thoughts (Past 1 Month) No 04/24/2025 1:13 AM Steph Mcmillan RN 6. Suicidal Behavior (Lifetime) No 1:13 AM Steph Mcmillan RN documented as of this encounter Mental Status * Because of a physical, mental, or emotional condition, do you have serious difficulty concentrating, remembering, or making decisions? (5 years old or older) Answer Entry Date Author No 01/20/2025 12:19 PM Chung Solis RN documented in this encounter Plan of Treatment Upcoming Encounters Date Type Department Care Team (Late st Contact Info) Description 07/03/2025 3:30 PM EST Office Visit Adult Medicine [address] [phone] Robbie Winston NP [address] [place] [address] 08/04/2025 3:00 PM EST Office Visit Adult Medicine [address] [phone] Sunil Renae MD [address] [place] [address] 08/22/2025 2:20 PM EST Office Visit Gastroenterology - [address] [phone] Emma Karimi PA [address] [address] documented as of this encounter Visit Diagnoses Not on filedocumented in this encounter Care Teams Patient Companion Relationship Specialty Start Date End Date Sunil Renae MD [address] [place] [address] PCP - General Internal Medicine 04/08/13 documented as of this encounter
--- OUTSIDE RECORDS SUMMARY | 2025-06-02 20:16 | XMS_ITS | Encounter Summary ---
Author Organization [employer] Address [address] [place] [address] Care Team Providers Care Complaint Specialist Name Role Phone Sunil Renae MD Primary Care Provider [phone] Encounter Details Date Type Department Care Team (Late st Contact Info) Description 05/23/2025 Telephone Gastroenterology - [address] [place] [id number] Madisyn Mike MA Social History Tobacco Use Types Packs/Day Years [...] of Assessment Author No 01/20/2025 12:19 PM Chung Solis RN * Are you blind or do you have serious difficulty seeing, even when wearing glasses? Answer Date of Assessment Author No 01/20/2025 12:19 PM Chung Solis RN * Do you have serious difficulty walking or climbing stairs? Answer Date of Assessment Author No 01/20/2025 12:19 PM Chung Solis, JOSIAS * Do you have serious difficulty dressing or bathing? Answer Date of Assessment Author No 01/20/2025 12:19 PM EDT Chung Morrell RN * Because of a physical, mental, or emotional condition, do you have serious difficulty doing errandsalone such as visiting the doctor? Answer Date of Assessment Author No 01/20/2025 12:19 PM EDT Chung Morrell RN documented as of this encounter Mental Status * Because of a physical, mental, or emotional condition, do you have serious difficulty concentrating, remembering, or making decisions? (5 years old or older) Answer Entry Date Author No 01/20/2025 12:19 PM EDT Chung Morrell RN documented in this encounter Plan of Treatment Upcoming Encounters Date Type Department Care Team (Late st Contact Info) Description 07/03/2025 3:30 PM EST Office Visit Adult Medicine [address] [phone] Robbie Winston NP [address] [place] [address] 08/04/2025 3:00 PM EST Office Visit Adult Medicine [address] [phone] Sunil Renae MD [address] [place] [address] 08/22/2025 2:20 PM EST Office Visit Gastroenterology - [address] [phone] Emma Karimi PA [address] [address] documented as of this encounter Visit Diagnoses Not on filedocumented in this encounter Care Teams Complaint Specialist Relationship Specialty Start Date End Date Sunil Renae MD [address] [place] [address] PCP - General Internal Medicine 04/08/13 documented as of this encounter
--- OUTSIDE RECORDS SUMMARY | 2025-06-02 20:16 | XMS_ITS | Encounter Summary ---
Author Organization [employer] Address [address] [place] [address] Care Team Providers Care [employer] Founder Name Role Phone Sunil Renae MD Primary Care Provider [phone] Encounter Details Date Type Department Care Team (Late st Contact Info) Description 04/12/2025 Results Follow-Up Adult Medicine [address] [phone] Chioma Reyna PA [address] [place] [address] Social History Tobacco Use Types Packs/Day Years [...] 3:30 PM EST Office Visit Adult Medicine [address] [phone] Robbie Winston NP [address] [place] [address] 08/04/2025 3:00 PM EST Office Visit Adult Medicine [address] [phone] Sunil Renae MD [address] [place] [address] 08/22/2025 2:20 PM EST Office Visit Gastroenterology - [address] [phone] Emma Karimi PA [address] [address] documented as of this encounter Visit Diagnoses Not on filedocumented in this encounter Care Teams [employer] Founder Relationship Specialty Start Date End Date Sunil Renae MD [address] [place] [address] PCP - General Internal Medicine 04/08/13 documented as of this encounter
--- OUTSIDE RECORDS SUMMARY | 2025-06-02 20:16 | XMS_ITS | Encounter Summary ---
Author Organization [employer] Address [address] [place] [address] Care Team Providers Care Investigative Research Specialist Name Role Phone Sunil Renae MD Primary Care Provider Reason for Referral * Imaging (Routine) - Closed Specialty Diagnoses / Procedures Referred By Bronson cruz Referred To Contact Radiology Diagnoses Nonintractable headache, unspecified chronicity pattern, unspecified headache type Dizziness Empty sella (CMS/[facility] V24) Procedures MR Brain wo Contrast Chioma Reyna PA [address] [place] [address] Phone: tel: fax: [address] Phone: tel: Referral ID Status Reason Start Date Expiration Date Visits Re quested Visits Authorized [id number] Closed 03/30/2025 03/30/2026 1 1 Encounter Details Date Type Department Care Team (Late st Contact Info) Description 03/30/2025 Results Follow-Up Adult Medicine [address] [phone] Chioma Reyna PA [address] [place] [address] Social History Tobacco Use Types Packs/Day Years [...] 12:19 PM EDT Chung Morrell RN * Are you blind or do [...] 04/24/2025 1:13 AM Steph Mcmillan RN * [place] Suicide Severity Rating Scale (Screener/Recent Self-Report) Question Answer Date of Assessment Author 1. Wish to be (Past 1 Month) No 025 1:13 AM Steph Mcmillan RN 2. Non-Specific [...] 07/03/2025 3:30 PM EST Office Visit Adult [address] [phone] Robbie Winston NP [address] [place] [address] 08/04/2025 3:00 PM EST Office Visit Adult [address] [phone] Sunil Renae MD [address] [place] [address] 08/22/2025 2:20 PM EST Office Visit Gastroenterology - [address] [phone] Emma Karimi PA [address] [place] [id number] documented as of this encounter Results * MR Brain wo Contrast (04/08/2025 9:39 AM EDT) Anatomical Region Laterality Modality Head and Neck Magnetic Resonan ce 04/10/2025 9:27 AM EDT Impressions 04/10/2025 9:53 AM EDT Normal brain MRI without contrast. No change dating back to 03/05/2024. -------- FINAL REPORT -------- Dictated By: ADRIANA NEAL Dictated Date: 04/10/2025 09:27 ET Assigned Physician: ADRIANA NEAL Reviewed and Electronically Signed By: ADRIANA NEAL Signed Date: 04/10/2025 09:53 ET Workstation ID: [id number] Transcribed By: Self Edit Transcribed Date: 04/10/2025 [...] tissues and calvarium are normal. Procedure Note Adriana Neal MD - 04/10/2025 PROCEDURE: Brain MRI INDICATION: [...] 03/05/2024. -------- FINAL REPORT -------- Dictated By: ADRIANA NEAL Dictated Date: 04/10/2025 09:27 ET Assigned Physician: ADRIANA NEAL Reviewed and Electronically Signed By: ADRIANA NEAL Signed Date: 04/10/2025 09:53 ET Workstation ID: [id number] Transcribed By: Self Edit Transcribed Date: 04/10/2025 09:48 ET Chioma DOS [facility] MRI PROCEDURES Final Resu lt documented in this encounter Visit Diagnoses Diagnosis Nonintractable headache, unspecified chronicity pattern, unspecified headache type- Primary Dizziness Dizziness and giddiness Empty sella ([facility] V24) Other disorders of the pituitary and other syndromes of diencephalohypophyseal origin Nonintractable headache, unspecified chronicity pattern, unspecified headache type Dizziness Dizziness and giddiness Empty sella (CMS/[facility] V24) Other disorders of the pituitary and other syndromes of diencephalohypophyseal origin documented in this encounter Care Teams Investigative Research Specialist Relationship Specialty Start Date End Date Sunil Renae MD [address] [place] [address] PCP - General Internal Medicine 04/08/13 documented as of this encounter
--- OUTSIDE RECORDS SUMMARY | 2025-06-02 20:16 | XMS_ITS | Encounter Summary ---
Author Organization [email or web address] Address [address] [place] [address] Care Team Providers Care Iron Melter Name Role Phone Sunil Renae MD Primary Care Provider [phone] Reason for Referral * Consultation (Routine) - Authorized Specialty Diagnoses / Procedures Referred By Bronson cruz Referred To Contact Endocrinology Diagnoses Decreased thyroid stimulating hormone (TSH) level Paulina Huynh PA [address] [place] [address] Phone: tel: fax: Endocrinology [address] Phone: tel: fax: Referral ID Status Reason Start Date Expiration Date Visits Requested Visits Authorized [id number] Authorized Specialty Services Required 05/10/2026 1 1 Encounter Details Date Type Department Care Team (Late st Contact Info) Description 05/10/2025 Results Follow-Up Adult Medicine [address] [phone] Paulina Huynh PA [address] [place] [address] Social History Tobacco Use Types Packs/Day Years [...] Entry Date Author No 01/20/2025 12:19 PM EDChung Tyler RN documented in this encounter Plan of Treatment Upcoming Encounters Date Type Department Care Team (Late st Contact Info) Description 07/03/2025 3:30 PM EST Office Visit Adult Medicine [facility] [address] [place] [phone] Robbie Winston NP [address] [place] [address] 08/04/2025 3:00 PM EST Office Visit Adult [address] [phone] Sunil Renae MD [address] [place] [address] 08/22/2025 2:20 PM EST Office Visit Gastroenterology - [address] [phone] Emma Karimi PA [address] [address] Scheduled Referrals Name Type Priority Associated Diagnoses Order Schedule Ambulatory referral to Endocrinology Outpatient Referral Routine Decreased thyroid stimulating hormone (TSH) level 1 Occurrences starting 05/10/2025 until 05/10/2026 documented as of this encounter Visit Diagnoses Diagnosis Decreased thyroid stimulating hormone (TSH) level- Primary documented in this encounter Care Teams Iron Melter Relationship Specialty Start Date End Date Sunil Renae MD [address] [place] [address] PCP - General Internal Medicine 04/08/13 documented as of this encounter
== END 2025-06-02 15:59 | disposition home or self-care (01) ==
LOC: HO.HSM 15:24
PROVIDERS: PCP Internal Medicine; Visit Provider Nurse Practitioner
DX: G43.709 Chronic migraine without aura, not intractable, without status migrainosus (principal)
CPT/HCPCS: 99214

== ENCOUNTER → 2025-06-02 15:24 | Outpatient (BNVA) | payer OTHER, SELFPAY | PROVIDERS: PCP Internal Medicine; Visit Provider Nurse Practitioner | DX: G43.709 Chronic migraine without aura, not intractable, without status migrainosus (principal) | CPT/HCPCS: 99212 ==